=== PATIENT | female | born 1955 | race Caucasian/White ===

== ENCOUNTER 2022-03-28 13:34 | Outpatient (CLI) | payer MEDICARE, OTHER, SELFPAY ==
[2022-04-04 16:14] LABS: ANA Cascade Screen Negative (Negative)
== END 2022-03-28 13:35 | disposition home or self-care (01) ==
LOC: CHSLAB 13:37
PROVIDERS: PCP Internal Medicine; Visit Provider Nurse Practitioner Family
DX: R91.8 Other nonspecific abnormal finding of lung field (principal)
CPT/HCPCS: 36415; 86038; 86331; 86606; 86609

== ENCOUNTER 2022-05-02 12:40 | Outpatient (CLI) | payer MEDICARE, OTHER, SELFPAY ==
--- NOTE | ~2022-05-02 | CT_ITS ---
EXAMINATION: CT chest high resolution [facility] DATE: 05/02/2022 13:00 INDICATION: THIN WALLED LUNG CYST F/U. TECHNIQUE: Computed tomography (CT) of the chest was performed without intravenous contrast. Addition al 3D reconstructions utilizing coronal maximum intensity projection (MIP) were performed. Automated exposure control and iterative reconstruction technique were employed. The dose-length product was 13 5.67 mGy-cm. COMPARISON: 01/07/2018 FINDINGS: No interval change in a 1.5 cm right upper lobe nodule with smooth margins and less than fluid attenu ation consistent with a hamartoma. The nodule appears to nearly completely fill a thin-walled cystic structure with subtle eccentric lucency along the cephalad margin of the nodule evident on the sagitt al and coronal images. There is an additional unchanged 11 mm nodule within a thin-walled cyst in the anterior segment of the right upper lobe. Unchanged 3-4 mm peripheral nodule along a thin-walled cys t in the right lower lobe. Thin-walled cyst at the posterior sulcus of the left lower lobe within whi ch are three, 4-5 mm nodules which are increased in size since the prior study at which time there we re 4 such nodules measuring up to 2 mm in maximal diameters. There are a few additional unchanged thi n-walled cysts without nodules scattered throughout both lungs. 2 mm calcified nodule at the right mi ddle lobe consistent with old granulomatous disease. No other pulmonary nodules, pneumonia, pulmonary edema or pleural effusion. Heart size is normal. No pericardial effusion. Thoracic aorta is normal i n caliber. No pathologically enlarged thoracic lymphadenopathy. Visualized upper abdomen and bones ar e unremarkable. IMPRESSION: 1. Again seen are multiple thin-walled cysts, several with associated nodules, the majority including the 2 largest right upper lobe nodules measuring 1.1 cm and 1.5 cm are unchanged. There has been sli ght interval increase in size in 3 such nodules located within a single thin-walled cyst in the left lower lobe with each nodule having increased from 2 mm to currently measuring 4-5 mm. Given the simil ar imaging features these likely represent the same process. Despite the slight increase in size over 5 years of the nodules in one of the cysts, the stability of the remaining nodules including the 2 l argest suggest these are almost certainly benign with differential including mesenchymal cystic hamar linda of the lung, lymphangioleiomyomatosis minimal lymphocytic interstitial pneumonia or pulmonary La ngerhans cell histiocytosis. Reviewed, dictated and finalized at location A. IMPRESSION: 1. Again seen are multiple thin-walled cysts, several with associated nodules, the majority including the 2 largest right upper lobe nodules measuring 1.1 cm and 1.5 cm are unchanged. There has been slight interval increase in size in 3 such nodules located within a single thin-walled cyst in the left lower lobe wi th each nodule having increased from 2 mm to currently measuring 4-5 mm. Given the similar imaging features these likely represent the same process. Despite t he slight increase in size over 5 years of the nodules in one of the cysts, the stability of the remaining nodules including the 2 largest suggest these are a lmost certainly benign with differential including mesenchymal cystic hamartoma of the lung, lymphangioleiomyomatosis minimal lymphocytic interstitial pneumon ia or pulmonary Langerhans cell histiocytosis.
--- NOTE | 2022-05-07 13:29 | WPDPFTINT ---
PFT Procedure Performed PFT Procedure Performed Spirometry with Pre/Post Bronchodilator Plethysmography (Lung Vol) Diffusing Cap (DLCO) Flow Vol Loop PFT Interpretation DOS: 05/02/2022 REQUESTING: Dr. De Paz REASON FOR TESTING: Cysts on chest CT PULMONARY FUNCTION TESTS Results are reliable and reproducible. Spirometry: Pre bronchodilator FEV1 is 107% predicted, 2.63 L, normal. Pre bronchodilator FVC is 3.83 L, 124% predicted. FEV1/FVC ratio is 69%. The FEF 25-75 is 53%, 1.43 L, this is decreased. After bronchodilator administration, there is minimal change in spirometry. The FVC dropped by 3%, becomes 3.73 L, 121% predicted. There is a 1% increase in the FEV1. There is a 22% increase in the FEF 25-75%. This is now 1.74 L and is 65% predicted. Lung volumes: Total lung capacity is 110% predicted, 6.02 L. Residual volume is 102% predicted, 2.19 L normal. RV/TLC is 36% predicted normal. There is no air trapping. Airway resistance increased 458%. FRC is 116%. Diffusion: DLCO is 97% predicted, normal, 19.8 mL/min/mmHg. DLCO / VA is 105%, normal. Flow volume loop: There is mild scooping of the expiratory limb. IMPRESSION: Normal spirometry, mild decrease in the JAR08-10% which can be seen in asthma and a good response to bronchodilator in the small airways, normal lung volumes, increased airway resistance and normal diffusion. Clinical correlation is advised. Shelley De Paz MD
== END 2022-05-02 12:41 | disposition home or self-care (01) ==
LOC: CHSIMG 12:42
PROVIDERS: PCP Internal Medicine; Visit Provider Internal Medicine Critical Care Medicine
DX: J98.4 Other disorders of lung (principal)
CPT/HCPCS: 71250

== ENCOUNTER 2022-05-15 08:21 | Outpatient (CLI) | payer MEDICARE, SELFPAY ==
[2022-05-15 09:47] LABS: Rheumatoid Factor Screen Negative (Negative)
[2022-05-18 17:44] LABS: Albumin 4.1 g/dL (3.8-4.8); Alpha 1 Globulin 0.3 g/dL (0.2-0.3); Alpha 2 Globulin 0.6 g/dL (0.5-0.9); Beta 1 Globulin 0.4 g/dL (0.4-0.6); Gamma Globulin 0.7 g/dL (0.8-1.7); Interpretation Consistent with; Protein, Total 6.4 g/dL (6.1-8.1)
== END 2022-05-15 08:22 | disposition home or self-care (01) ==
LOC: CHSLAB 08:23
PROVIDERS: PCP Internal Medicine; Visit Provider Internal Medicine Critical Care Medicine
DX: J98.4 Other disorders of lung (principal); J84.112 Idiopathic pulmonary fibrosis
CPT/HCPCS: 36415; 84155; 84165; 86430

== ENCOUNTER 2022-10-30 08:12 | Outpatient (CLI) | payer MEDICARE, SELFPAY ==
[2022-10-30 08:51] LABS: Anion Gap 8 mmol/L (8-16); Blood Urea Nitrogen 18 mg/dL (7-18); Calcium 8.7 mg/dL (8.5-10.1); Carbon Dioxide 30 mmol/L (21-32); Chloride 106 mmol/L (98-108); Estimated Glomerular Filt Rate > 60; Glucose 88 mg/dL (70-99); Osmolality Calculated 298 mOsm/kg (285-295); Potassium 4.2 mmol/L (3.5-5.1); Sodium 144 mmol/L (136-145)
[2022-11-01 18:16] LABS: Kappa\\Lambda Light Chains 1.42 (0.26-1.65); Lambda Light Chain 8.8 mg/L (5.7-26.3)
[2022-11-02 04:54] LABS: Vitamin D 25 Hydroxy 48 ng/mL (30-100)
[2022-11-02 11:16] LABS: Albumin 4.3 g/dL (3.8-4.8); Alpha 1 Globulin 0.3 g/dL (0.2-0.3); Alpha 2 Globulin 0.7 g/dL (0.5-0.9); Beta 1 Globulin 0.4 g/dL (0.4-0.6); Gamma Globulin 0.8 g/dL (0.8-1.7); Protein, Total 6.8 g/dL (6.1-8.1)
== END 2022-10-30 08:13 | disposition home or self-care (01) ==
PROVIDERS: PCP Internal Medicine; Visit Provider Internal Medicine Critical Care Medicine
DX: D80.1 Nonfamilial hypogammaglobulinemia (principal); M81.0 Age-related osteoporosis without current pathological fracture
CPT/HCPCS: 36415; 80048; 82306; 83883; 84155; 84165

== ENCOUNTER 2022-12-31 07:11 | Outpatient (CLI) | payer MEDICARE, OTHER, SELFPAY ==
--- NOTE | ~2022-12-31 | XR_ITS ---
XR lumbar spine 2-3V DATE: 12/31/2022 07:33 INDICATION: Right leg pain, knee pain TECHNIQUE: AP, lateral, coned lateral lumbosacral views COMPARISON: 07/13/2019 lumbar spine FINDINGS: Osteopenia. Moderate degenerative disease at L1-2 and L2-3 with associated mild retrolisthesis at L2-3. Remaining lumbar and lumbosacral interspaces are well preserved. No anterolisthesis. No fracture or bone destruction of the lumbar spine. The included lower thoracic and lumbar pedicles are intact. The sacroiliac joints are intact. IMPRESSION: Osteopenia Moderate degenerative disc disease at L1-2 and L2-3 with associated mild retrolisthesis at L2-3 Reviewed, dictated and finalized at location A. IMPRESSION: Osteopenia Moderate degenerative disc disease at L1-2 and L2-3 with associated mild retrol isthesis at L2-3
--- NOTE | ~2022-12-31 | XR_ITS ---
XR hip RT min 2V DATE: 12/31/2022 07:33 INDICATION: Right leg pain. Low back pain. TECHNIQUE: AP and lateral views of right hip COMPARISON: 07/13/2019 right hip FINDINGS: There is severe right hip joint space narrowing, particularly superolaterally. Chronic frac ture of the lateral lip of the right acetabulum. No recent fracture or dislocation is evident. The pubic symphysis and right sacroiliac joint are intact. IMPRESSION: Severe right hip osteoarthritis Chronic fracture at the lateral aspect of the right acetabulum Reviewed, dictated and finalized at location A.
[2022-12-31 07:28] LABS: Basophils Absolute Auto 0.04 K/mm3 (0.00-0.10); Basophils Percent Auto 0.7 % (0.0-1.0); Eosinophils Percent Auto 3.5 % (1.0-6.0); Hematocrit 43.9 % (35.0-42.0); Hemoglobin 14.7 g/dL (11.7-13.8); Lymphocytes Percent Auto 47.5 % (18.0-42.0); Mean Corpuscular HGB Conc 33.5 g/dL (32.0-36.0); Mean Corpuscular Hemoglobin 30.2 pg (27.0-31.0); Mean Corpuscular Volume 90.3 fL (78.0-102.0); Monocytes Absolute Auto 0.37 K/mm3 (0.10-0.90); Monocytes Percent Auto 6.5 % (2.0-11.0); Neutrophils Absolute Auto 2.4 K/mm3 (1.7-7.2); Neutrophils Percent Auto 41.8 % (50.0-70.0); Platelet Count Result 325 K/mm3 (150-420); Red Blood Count 4.86 M/mm3 (4.20-5.40); White Blood Count 5.7 K/mm3 (4.8-10.8)
[2022-12-31 08:38] LABS: Alanine Aminotransferase 23 U/L (14-59); Albumin Level 3.8 g/dL (3.4-5.0); Alkaline Phosphatase 58 U/L (46-116); Anion Gap 6 mmol/L (8-16); Aspartate Amino Transferase 12 U/L (15-37); Blood Urea Nitrogen 18 mg/dL (7-18); Carbon Dioxide 31 mmol/L (21-32); Chloride 105 mmol/L (98-108); Estimated Glomerular Filt Rate > 60; Glucose 88 mg/dL (70-99); Osmolality Calculated 294 mOsm/kg (285-295); Potassium 4.5 mmol/L (3.5-5.1); Sodium 142 mmol/L (136-145); Thyroid Stimulating Hormone 2.57 uIU/mL (0.36-3.74); Total Protein 6.8 g/dL (6.4-8.2)
[2022-12-31 09:00] LABS: CRP < 0.5 mg/dL (0.0-0.9)
[2023-01-06 21:56] LABS: ANCA Screen ATYP P-ANCA POS (Negative); Myeloperoxidase Ab <1.0 AI (<1.0); Proteinase-3 Ab <1.0 AI (<1.0); S cerevisiae Ab (IgA) 4.8 U (<=20.0); S cerevisiae Ab (IgG) 7.7 U (<=20.0)
[2023-01-06 22:14] LABS: Atyp PANCA Ttr Reflex Chg Test YES; Atypical P-ANCA Titer 1:40 Titer (<1:20)
== END 2022-12-31 07:12 | disposition home or self-care (01) ==
LOC: CHSLAB 07:14
PROVIDERS: PCP Internal Medicine; Visit Provider Internal Medicine
DX: E03.9 Hypothyroidism, unspecified (principal); R19.7 Diarrhea, unspecified; M79.604 Pain in right leg; M16.11 Unilateral primary osteoarthritis, right hip; M84.48XA Pathological fracture, other site, initial encounter for fracture; M51.36 Other intervertebral disc degeneration, lumbar region; M43.16 Spondylolisthesis, lumbar region
CPT/HCPCS: 36415; 72100; 73502; 80053; 84443; 85025; 86036; 86140; 86671

== ENCOUNTER 2023-03-11 09:03 | Outpatient (CLI) | payer MEDICARE, OTHER, SELFPAY ==
--- NOTE | ~2023-03-11 | XR_ITS ---
Clinical Indication: Preoperative evaluation, pulmonary cysts PA and lateral views of the chest: Comparison: None Findings: There is a 2 cm nodule at the right upper lobe. There is an additional 1 cm nodule at the r ight upper lobe. Left lung clear.. Cardiomediastinal silhouette is within normal limits. Bones and s oft tissues are unremarkable. Impression: Right upper lobe pulmonary nodules, as detailed above. These probably correlate with similar lesions seen on prior CT dated 05/02/2022. Reviewed, dictated and finalized at location M. Impression: Right upper lobe pulmonary nodules, as detailed above. These probably correlate with similar lesions seen on prior CT dated 05/02/2022.
--- NOTE | 2023-03-11 09:15 | ECG_ITS ---
Measurements Intervals [place] Rate: 65 P: 69 HI: 159 QRS: 76 QRSD: 93 T: 59 QT: 399 QTc: 417 Interpretive Statements SINUS RHYTHM NORMAL ECG NO PREVIOUS ECG AVAILABLE FOR COMPARISON Electronically Signed On 03-11-2023 9:49:24 CDT by Anand Chambers D.O.
== END 2023-03-11 09:04 | disposition home or self-care (01) ==
LOC: CHSIMG 09:06
PROVIDERS: PCP Internal Medicine; Visit Provider Internal Medicine
DX: Z01.818 Encounter for other preprocedural examination (principal); R91.8 Other nonspecific abnormal finding of lung field
CPT/HCPCS: 71046; 93005

== ENCOUNTER 2023-05-01 09:28 | Outpatient (CLI) | payer MEDICARE, OTHER, SELFPAY ==
--- NOTE | ~2023-05-01 | US_ITS ---
US arterial ankle brachial ind INDICATION: Peripheral arterial disease TECHNIQUE: Segmental pressures and plethysmographic and Doppler waveforms of the brachial and lower e xtremity arteries were obtained. COMPARISON: None. FINDINGS: Right and left brachial artery pressures of 140 mm Hg and 133 mm Hg, respectively, are concordant (no rmal difference <= 30 mmHg). The right ankle-brachial index (AVERY) is 1.01 (normal >= 0.9-1.0). The right great toe-brachial index (TBI) is 0.86 (normal >= 0.60). The left AVERY is 1.0. The left TBI is 0.84. IMPRESSION: 1. Normal bilateral ankle-brachial indices. Reviewed, dictated and finalized at location B.
--- NOTE | ~2023-05-01 | US_ITS ---
EXAMINATION:US venous doppler LE RT INDICATION:Right leg edema TECHNIQUE: Multiple grayscale, color flow and Doppler images of the right lower extremity deep venous systems were obtained and reviewed. COMPARISON:No prior studies for comparison. FINDINGS: The common femoral, superficial femoral and popliteal veins demonstrate normal respiratory variation, augmentation and compressibility. Color flow is also seen within the posterior tibial, pe roneal, greater saphenous and profunda veins. IMPRESSION: 1: No lower extremity deep venous thrombosis. Reviewed, dictated and finalized at location B.
[2023-05-01 10:03] LABS: Basophils Absolute Auto 0.03 K/mm3 (0.00-0.10); Basophils Percent Auto 0.5 % (0.0-1.0); Eosinophils Absolute Auto 0.21 K/mm3 (0.02-0.50); Eosinophils Percent Auto 3.5 % (1.0-6.0); Hematocrit 39.8 % (35.0-42.0); Hemoglobin 12.9 g/dL (11.7-13.8); Immature Granulocyte Absolute 0.01 K/mm3 (0.00-0.00); Immature Granulocyte Percent A 0.2 % (0.0-0.0); Lymphocytes Absolute Auto 2.05 K/mm3 (1.10-4.50); Lymphocytes Percent Auto 34.2 % (18.0-42.0); Mean Corpuscular HGB Conc 32.4 g/dL (32.0-36.0); Mean Corpuscular Hemoglobin 30.1 pg (27.0-31.0); Mean Corpuscular Volume 92.8 fL (78.0-102.0); Mean Platelet Volume 9.1 fl (9.2-11.8); Monocytes Absolute Auto 0.49 K/mm3 (0.10-0.90); Monocytes Percent Auto 8.2 % (2.0-11.0); Neutrophils Absolute Auto 3.2 K/mm3 (1.7-7.2); Neutrophils Percent Auto 53.4 % (50.0-70.0); Platelet Count Result 355 K/mm3 (150-420); Red Blood Count 4.29 M/mm3 (4.20-5.40); Red Cell Distribution Width 13.4 % (11.6-14.4)
[2023-05-01 10:55] LABS: D Dimer 1.17 mg/L (0.19-0.50)
[2023-05-01 11:25] LABS: Alanine Aminotransferase 17 U/L (14-59); Albumin Level 3.5 g/dL (3.4-5.0); Alkaline Phosphatase 84 U/L (46-116); Anion Gap 6 mmol/L (8-16); Aspartate Amino Transferase 13 U/L (15-37); Bilirubin,Total 0.7 mg/dL (0.00-1.00); Blood Urea Nitrogen 22 mg/dL (7-18); Calcium 8.8 mg/dL (8.5-10.1); Carbon Dioxide 30 mmol/L (21-32); Chloride 106 mmol/L (98-108); Estimated Glomerular Filt Rate > 60; Glucose 80 mg/dL (70-99); Osmolality Calculated 296 mOsm/kg (285-295); Potassium 4.6 mmol/L (3.5-5.1); Sodium 142 mmol/L (136-145); Total Protein 6.4 g/dL (6.4-8.2)
== END 2023-05-01 09:29 | disposition home or self-care (01) ==
PROVIDERS: PCP Internal Medicine; Visit Provider Internal Medicine
DX: M79.89 Other specified soft tissue disorders (principal); R23.2 Flushing
CPT/HCPCS: 36415; 80053; 85025; 85380; 93922; 93971

== ENCOUNTER 2023-05-08 08:15 | Outpatient (RCR) | payer MEDICARE, OTHER, SELFPAY ==
--- NOTE | 2023-05-08 15:43 | OPREHPOC ---
Outpatient Therapy Plan of Care This is a Multidisciplinary Plan of Care that may contain components documented by all disciplines (PT, OT, and ST.) PT Problem 1 PT Problem #1 Knowledge Deficit PT Goal 1 Goal 1. Patient to demonstrate independence with HEP in order to improve progress made in PT. Target Visit 6 PT Problem 2 PT Problem #2 Impaired Range of Motion PT Goal 1 Goal 1. Patient to achieve 105 degrees of active R hip flexion to improve her ability to squat to floor to place food in her dog's bowl. Target Visit 12 PT Problem 3 PT Problem #3 Impaired Strength PT Goal 1 Goal 1. Patient to increase strength in R hip to 4/5 or greater overall to improve ability to ascend stairs. 2. Patient to increase strength in R knee to 5/5 overall to improve ability to perform squat. Target Visit 12 PT Problem 4 PT Problem #4 Impaired Gait PT Goal 1 Goal 1. Patient to demonstrate equal step length with gait to normalize gait pattern. 2. Patient to ambulate 800 feet or more during 6 minute walk test to improve endurance for walking in community. 3. patient to ambulate with no AD Target Visit 12 PT Problem 5 PT Problem #5 Impaired Functional Mobil PT Goal 1 Goal 1. Patient to improve LEFS score to 30% or less functional decline to help in return to prior level of activity. 2. Patient to ascend/descend stairs using reciprocal gait pattern to allow for her to reach laundry in basement. Target Visit 12
--- NOTE | 2023-05-08 15:44 | PTOPEVAL1 ---
Assessment and note entered by JT File, PT Evaluation Information Assessment Status Evaluation Diagnosis R ALESSANDRA Onset 05/05/23 Subjective Information Patient reports having a right anterior hip replacement about 6 weeks ago. She reports she has a history of osteoporosis, due to this she was 50 % weight bearing on the surgical limb until this past Thursday. She notes that she had a siginifcant amount of swelling following the surgery, but has since reduced. She notes that since she has been full weight bearing that she was been functioning much better, however has yet been able to climb a flight of stairs. She reports no pain at rest in sitting, she notes occasional hip discomfort and tenderness along the incision. She brings with her a FWW and SPC this date, noting that the doctor suggested she work on transferring to using a SPC with PT. She notes that prior to surgery she had not used any assistive device to ambulate. She wants to be mobile by the time she visits [place] in July Reported Pain Level Pain Score 0: Self Report Assessment PT Clinical Summary Mrs. Sams is a 67 y/o female who presents to skilled PT s/p R ALESSANDRA. She presents with impairments in R hip ROM, as well as R hip and knee muscle strength. Patient ambulates with unequal step lengths and FWW currently. Patient currently has 60% functional decline as assessed by the LEFS, and reports difficulty participating in her normal activities and being able to navigate a flight of stairs to reach her laundry in the basement. She would benefit from continued skilled therapy to address strength, ROM, and gait deficits and aid in her return to prior level of function. Plan of Care Interventions Electrical Stimulation,Gait Training,Hot Pack/Cold Pack,Manual Therapy,Neuro Re-education,Patient/ Caregiver Educati,Therapeutic Activities, Therapeutic Exercise PT Services Indicated Yes Treatment Frequency and 3x/week for 12 visits Duration These treatments will address the objective and functional deficits as defined above. The patient will be advanced safely and appropriately in order for the patient to progress towards his/her prior level of function. Additional exercises will be introduced and as well as a comprehensive home exercise program upon discharge, if needed, ?to ensure carryover of functional gains achieved in the clinic. This treatmen
--- NOTE | 2023-05-27 14:11 | OPREHPOC ---
Outpatient Therapy Plan of Care This is a Multidisciplinary Plan of Care that may contain components documented by all disciplines (PT, OT, and ST.) PT Problem 1 PT Problem #1 Knowledge Deficit PT Goal 1 Goal 1. Patient to demonstrate independence with HEP in order to improve progress made in PT. Target Visit 6 Progress Met Comment continue to progress exercises PT Problem 2 PT Problem #2 Impaired Range of Motion PT Goal 1 Goal 1. Patient to achieve 105 degrees of active R hip flexion to improve her ability to squat to floor to place food in her dog's bowl. Target Visit 12 Progress Partially Met Comment improved ROM, however goal not met PT Problem 3 PT Problem #3 Impaired Strength PT Goal 1 Goal 1. Patient to increase strength in R hip to 4/5 or greater overall to improve ability to ascend stairs. 2. Patient to increase strength in R knee to 5/5 overall to improve ability to perform squat. Target Visit 12 Progress Partially Met Comment goal 2 met, goal 1 partially met PT Problem 4 PT Problem #4 Impaired Gait PT Goal 1 Goal 1. Patient to demonstrate equal step length with gait to normalize gait pattern. 2. Patient to ambulate 800 feet or more during 6 minute walk test to improve endurance for walking in community. 3. patient to ambulate with no AD Target Visit 12 Progress Met Comment goals met PT Problem 5 PT Problem #5 Impaired Functional Mobil PT Goal 1 Goal 1. Patient to improve LEFS score to 30% or less functional decline to help in return to prior level of activity. 2. Patient to ascend/descend stairs using reciprocal gait pattern to allow for her to reach laundry in basement. Target Visit 12 Progress Partially Met Comment goal 2 met
--- NOTE | 2023-05-27 14:12 | PTOPPROGNS ---
Assessment and note entered by JT File, PT Evaluation Information Assessment Status Re-evaluation Diagnosis R ALESSANDRA Onset 05/05/23 Subjective Information Patient reports some soreness present in the R hip at the start of today's PT session. She notes she has been walking with no AD for a few weeks now without any difficulty. Patient reports everything has gotten easier to do throughout the day since starting PT. She notes some difficulty remains when she bends over to pick objects up from floor. She states she started driving again yesterday with no difficulty. Assessment PT Clinical Summary Ms. Sams has attended 10 visits of skilled PT following R ALESSANDRA, making good progress towards goals. She demonstrates improved hip ROM, strength , and LE flexibility this date. Patient improved distance ambulated with 6 minute walk test, as well as improved Tinetti balance score, reducing her fall risk. Patient reports improved ability to walk, climb stairs, and move throughout the day, however still has some challenge with bending over to pick items up from floor. Patient to continue PT for remaining two visits in POC to further strengthening, balance, and ROM activities. Plan of Care Interventions Electrical Stimulation,Gait Training,Hot Pack/Cold Pack,Manual Therapy,Neuro Re-education,Patient/ Caregiver Educati,Therapeutic Activities, Therapeutic Exercise PT Services Indicated Yes Treatment Frequency and continue POC for remaining 2 visits per initial Duration evaluation These treatments will address the objective and functional deficits as defined above. The patient will be advanced safely and appropriately in order for the patient to progress towards his/her prior level of function. Additional exercises will be introduced and as well as a comprehensive home exercise program upon discharge, if needed, ?to ensure carryover of functional gains achieved in the clinic. This treatment plan has been reviewed and agreement upon by the patient.
--- NOTE | 2023-06-03 09:08 | PTOPDC ---
Assessment and note entered by JT File, PT Evaluation Information Assessment Status Discharge Diagnosis R ALESSANDRA Onset 05/05/23 Subjective Information patient reports she feels great today. she reports she has no pain in the R hip. she reports she is no using any AD. she reports she is walking up and down steps at home to perform laudry duties. Reported Pain Level Pain Score 0: Self Report Pain Score 0: Self Report Assessment PT Clinical Summary mrs. thompson presents to skilled PT for her 12th skilled PT visit today. she has met all goals for skilled PT as of this date. she will DC skilled PT and continue with HEP independent at home. Plan of Care PT Services Indicated Yes
== END 2023-06-03 15:29 | disposition home or self-care (01) ==
LOC: CHSPT 08:15
DX: Z47.1 Aftercare following joint replacement surgery (principal); Z96.641 Presence of right artificial hip joint
CPT/HCPCS: 97110; 97112; 97140; 97161; 97530

== ENCOUNTER 2023-10-30 07:21 | Outpatient (CLI) | payer MEDICARE, OTHER, SELFPAY ==
[2023-10-30 08:15] LABS: Calcium 8.6 mg/dL (8.5-10.1)
[2023-11-02 21:29] LABS: Vitamin D 25 Hydroxy 51 ng/mL (30-100)
== END 2023-10-30 07:22 | disposition home or self-care (01) ==
LOC: CHSLAB 07:25
PROVIDERS: PCP Internal Medicine
DX: M81.0 Age-related osteoporosis without current pathological fracture (principal)
CPT/HCPCS: 36415; 82306; 82310

== ENCOUNTER 2023-12-15 11:16 | Outpatient (CLI) | payer MEDICARE, OTHER, SELFPAY ==
--- NOTE | ~2023-12-15 | XR_ITS ---
Clinical Indication: Nodule PA and lateral views of the chest: Comparison: Report from prior exam dated 03/11/2023 Findings: 2 cm irregular pulmonary nodule and additional 1 cm right upper lobe pulmonary nodule prese nt, presumably unchanged based on report from prior exam.. Cardiomediastinal silhouette is within no rmal limits. Bones and soft tissues are unremarkable. Impression: Right upper lobe pulmonary nodules, as detailed above, likely unchanged based on report from prior ex am. Images cannot be retrieved for direct comparison due to computer/technical issues at this time. Reviewed, dictated and finalized at location M. Impression: Right upper lobe pulmonary nodules, as detailed above, likely unchanged based o n report from prior exam. Images cannot be retrieved for direct comparison due to computer/technical issues at this time.
== END 2023-12-15 11:17 | disposition home or self-care (01) ==
PROVIDERS: PCP Internal Medicine; Visit Provider Internal Medicine Critical Care Medicine
DX: J98.4 Other disorders of lung (principal); R91.8 Other nonspecific abnormal finding of lung field
CPT/HCPCS: 71046

== ENCOUNTER 2024-05-16 11:21 | Outpatient (CLI) | payer MEDICARE, SELFPAY ==
[2024-05-16 16:03] LABS: Anion Gap 8 mmol/L (4-12); Blood Urea Nitrogen 16 mg/dL (7-18); Calcium 8.8 mg/dL (8.5-10.1); Carbon Dioxide 31 mmol/L (21-32); Chloride 104 mmol/L (98-108); Estimated Glomerular Filt Rate > 60; Glucose 94 mg/dL (70-99); Osmolality Calculated 297 mOsm/kg (285-295); Potassium 4.2 mmol/L (3.5-5.1); Sodium 143 mmol/L (136-145)
[2024-05-17 12:08] LABS: Vitamin D 25 Hydroxy 46 ng/mL (30-100)
== END 2024-05-16 11:22 | disposition home or self-care (01) ==
PROVIDERS: PCP Internal Medicine
DX: M81.0 Age-related osteoporosis without current pathological fracture (principal)
CPT/HCPCS: 36415; 80048; 82306

== ENCOUNTER 2024-12-30 12:45 | Outpatient (CLI) | payer MEDICARE, OTHER, SELFPAY ==
--- NOTE | ~2024-12-30 | CT_ITS ---
CT diagnostic chest wo con Ordering provider: Shelley De Paz MD History: 69 years Female with . cystic lung disease, comparison . Comparison: May 02 2022 Technique: CT chest without IV contrast.Radiation reduction technique utilized.The dose-length produc t was 153 mGy-cm. FINDINGS: VISUALIZED THORACIC INLET: Normal. MEDIASTINUM: Aorta/coronary arteries: Mild atheromatous disease. Ascending aorta measures 3.3 cm. Heart/other: The heart is not enlarged. Trace of pericardial effusion. Lymph nodes: No mediastinal or hilar adenopathy. LUNGS: Small cystic areas with intracystic nodules seen in the right upper lobe posteriorly. Another lesion is also seen in the medial lobe other multiple lesions are seen in the right and left lower lo bes and left upper lobe. No pulmonary masses. No infiltrates or effusions. No pneumothorax. VISUALIZED UPPER ABDOMEN: Slightly hyperdense lesion in the right lobe of the liver measuring 2.8cm. Otherwise, the visualized upper abdomen evaluation advised. Abdomen is normal. MUSCULOSKELETAL: Soft tissues: The superficial soft tissues are normal. Bones: Age appropriate degenerative changes of the spine. IMPRESSION: 1. Multiple cystic areas with nodules which has slightly increased in number compared to the previou s study. Differential as previously mentioned including KINNEY and LCH. 2. Slightly hyperdense area in the liver segment 6. Further evaluation advised. Reviewed, dictated and finalized at location A. IMPRESSION: 1. Multiple cystic areas with nodules which has slightly increased in number c ompared to the previous study. Differential as previously mentioned including L AM and LCH. 2. Slightly hyperdense area in the liver segment 6. Further evaluation advised .
--- OUTSIDE RECORDS SUMMARY | 2024-12-30 12:50 | XMS_ITS | Clinical Summary ---
Author Organization [facility] Address [address] [address] Care Team Providers Care Assistant Front End Manager Name Role Phone Harsha Delarosa MD Primary Care Provider [phone] Source Comments [facility],non-[facility] and Associated Physician Practices is amultiple site organization consisting of ambulatory clinics and hospital sitesin [place], [place], [place] and [place]. This disclosure is being madepursuant to the Care Everywhere program and may not contain all information available regarding this patient. Last updated 18.[facility] Allergies No known active allergies Social History Tobacco Use Types Packs/Day Years Used Date Smoking Tobacco: Never Assessed Comments Unknown Sex and Gender Information Value Date Recorded Sex Assigned at Not on file Legal Sex Female 5:22 PM CDT Gender Identity Not on file Sexual Orientation Not on file Last Filed Vital Signs Vital Sign Reading Time Taken Comments Blood Pressure 124/68 12/28/2016 2:38 PM CDT Pulse 68 12/28/2016 2:38 PM CDT Temperature 36.6 C (97.8 F) 12/28/2016 2:38 PM CDT Respiratory Rate - - Oxygen Saturation 98% 12/28/2016 2:38 PM CDT Inhaled Oxygen Concentration - - Weight 70.3 kg (155 lb) 12/28/2016 2:38 PM CDT Height 167.6 cm (5' 6 ) 12/28/2016 2:38 PM CDT Body Mass Index 25.02 12/28/2016 2:38 PM CDT Plan of Treatment Health Maintenance Due Date Last Done Comments BONE DENSITY TESTING 1955 COLOGUARD (AGES 45-75) - COL ON CA SCREENING 1956 COLON MONITORING 1956 COLONOSCOPY - COLON CA SCREENING 1956 CT COLONOGRAPHY - COLON CA SCREENING 1956 Colorectal Cancer Screening 1956 FIT - COLON CA SCREENING 1956 FLEX SIG - COLON CA SCREENING 1956 LIPID TESTING 1956 MAMMOGRAM 1956 HEPATITIS C SCREENING 10/30/1974 DTAP/TDAP/TD VACCINES (1 - Tdap) 1975 PNEUMOCOCCAL VACCINE 50+ (1 of 1 - PCV) 2006 ZOSTER VACCINE (1 of 2) 2006 COVID-19 VACCINE (1 - 2023-2 5 season) 2024 DEPRESSION SCREENING 09/07/2024 INFLUENZA VACCINE (Season Ended) 2025 Respiratory Syncytial Virus (RSV) Vaccine Pt: or over 60 yrs (1 - 1-dose 75+ series) 2031 HEPATITIS B VACCINE Aged Out No longe r eligible based on patient's age to complete this topic HIB VACCINE Aged Out No longer eligi ble based on patient's age to complete this topic HPV VACCINE Aged Out No longer eligi ble based on patient's age to complete this topic MENINGOCOCCAL (Group B) VACC INE SHARED DECISION-MAKING Aged Out No longer eligibl e based on patient's age to complete this topic MENINGOCOCCAL GROUPS A/C/Y/W VACCINE Aged Out No longer eligible b ased on patient's age to complete this topic Insurance ANTHEM Care Teams Assistant Front End Manager Relationship Specialty Start Date End Date Harsha Delarosa MD [address] [place] [id number] PCP - General Family Medicine 12/28/16
--- OUTSIDE RECORDS SUMMARY | 2024-12-30 12:50 | XMS_ITS | Clinical Summary ---
Author Organization [facility] Address [address] [place] [address] Care Team Providers Care Frozen Food Department Manager Name Role Phone Guerrero Whatley MD Primary Care Provider Allergies No known active allergies Medications calcium carb-cholecalci ferol (CALTRATE+D) 600-10 MG-MCG Tab tablet 1 tablet daily. Active multi vitamin/mineral s (THERA-M ENHANCED) tablet Take 1 tablet by mouth daily. Active levothyroxine (SYNTHROID) 50 MCG tablet Take 1 tablet (50 mcg total) by mouth every morning. Active B complex-C Cap capsule Take 1 capsule by mouth daily. Active vitamin D3, cholecalciferol , 10 mcg tablet Take 1 tablet (10 mcg total) by mouth daily. Active HYDROcodone-mehnaz taminophen (NORCO) 5-325 MG tabletIndicatio ns:Chronic Pain Take 1-2 tablets by mouth every 4 (four) hours as needed for Pain. Indications: Chronic Pain 50 tablet 03/24/2023 Active traMADol (ULTRAM) 50 MG tabletIndicatio ns:Chronic Pain Take 1 tablet (50 mg total) by mouth every 8 (eight) hours as needed for Pain. Indications: Chronic Pain 30 tablet 03/24/2023 Active ondansetron (ZOFRAN) 4 MG tabletIndicatio ns:Status post total hip replacement, right Take 1 tablet (4 mg total) by mouth every 8 (eight) hours as needed for Nausea. 10 tablet 03/24/2023 Active Active Problems Problem Noted Date Diagnosed Date Status post total hip replacement, right 023 Family History Medical History Relation Comments Heart Disease Father Stroke Father Heart Disease Mother Stroke Mother Relation Status Comments Father Alive Mother Social History Tobacco Use Types Packs/Day Years Used Date Smoking Tobacco: Never Smokeless Tobacco: Never Tobacco Cessation:Counseling Given: Not Answered Alcohol Use Standard Drinks/Week Comments Not Currently 0 (1 standard drink = 0.6 oz pur e alcohol) Humiliation, Afraid, Rape, and Kick questionnair e Answer Date Recorded Within the last year, have y ou been afraid of your partner or ex-partner? No 03/24/2023 Within the last year, have y ou been humiliated or emotionally abused in other ways by your partner or ex-partner? No Within the last year, have y ou been kicked, hit, slapped, or otherwise physically hurt by your partner or ex-partner? No 03/24/2023 Within the last year, have y ou been raped or forced to have any kind of sexual activity by your partner or ex-partner? No 03/24/2023 Overall Financial Resource Strain (CARDIA) Answe r Date Recorded How hard is it for you to pa y for the very basics like food, housing, medical care, and heating? Not hard at all 03/24/2023 Hunger Vital Sign Answer Date Recorded Within the past 12 months, y ou worried that your food would run out before you got the money to buy more. Never true 03/24/20 23 Within the past 12 months, t he food you bought just didn't last and you didn't have money to get more. Never true 03/24/2023 PRAPARE - Transportation Answer Date Re corded In the past 12 months, has l ack of transportation kept you from medical appointments or from getting medications? No 03/07 In the past 12 months, has l ack of transportation kept you from meetings, work, or from getting things needed for daily living? No 03/24/2023 Housing Stability Vital Sign Answer Marshall e Recorded In the last 12 months, was t here a time when you were not able to pay the mortgage or rent on time? No 03/24/2023 In the last 12 months, how many places have you lived? 1 03/24/2023 In the last 12 months, was t here a time when you did not have a steady place to sleep or slept in a correction (including now)? No 03/24/2023 Comments Unknown Sex and Gender Information Value Date Recorded Sex Assigned at Not on file Legal Sex Female 10:15 PM [employer] Gender Identity Not on file Sexual Orientation Not on file Last Filed Vital Signs Vital Sign Reading Time Taken Comments Blood Pressure 96/53 03/25/2023 7:59 AM CDT Pulse 74 03/25/2023 7:59 AM CDT Temperature 36.7 C (98.1 F) 03/25/2023 7:59 AM CDT Respiratory Rate 16 03/25/2023 3:40 AM CDT Oxygen Saturation 95% 03/25/2023 7:59 AM CDT Inhaled Oxygen Concentration - - Weight 67.6 kg (149 lb) 03/24/2023 9:27 AM CDT Height 167.6 cm (5' 6 ) 03/24/2023 9:27 AM CDT Body Mass Index 24.05 03/24/2023 9:27 AM CDT Plan of Treatment Health Maintenance Due Date Last Done Comments Colorectal Cancer Screening Colonoscopy (10 Years) 1956 Hepatitis C 1974 DTaP, Tdap and Td Vaccines (1 - Tdap) 1975 Mammogram Screening 1996 Pneumococcal Vaccine: 50+ Years (1 of 1 - PCV) 2006 Annual Medicare Wellness Visit 2021 Dexa Scan (General) 2021 COVID-19 Vaccine ( - season) 2024 06/01/2022, 07/15/2021, 10/29/2020, Additional history exists RSV Immunization or 60+ Years (1 - 1-dose 75+ series) 2031 Zoster Vaccines Completed 07/02/2019, 05/01/2019 Meningococcal B Vaccine Aged Out No l onger eligible based on patient's age to complete this topic Meningococcal Vaccine Aged Out No robinson chintan eligible based on patient's age to complete this topic RSV Immunizations Under 20 Months Aged Out No longer eligible based on patient's age to complete this topic Medical Devices Implanted Type Area Finance Professional Device Identifier Shelf Expiration Date Model / Serial / Lot Screw Imani Bone 20mm - [id number] Implanted:Qty: 1 on 03/24/2023 by Dougie Rowan MD at [facility] Screw Right: Hip [employer] [id number] 03/25/2032 [id number] / / [id number] Screw Imani Bone 20mm - [id number] Implanted:Qty: 1 on 03/24/2023 by Dougie Rowan MD at [facility] Screw Right: Hip [employer] [id number] 09/05/2032 [id number] / / [id number] Acetabular Shell Implanted:Qty: 1 on 03/24/2023 by Dougie Rowan MD at [facility] Right: Hip [employer] [id number] 01/06/2033 [id number] / / [id number] Poly Liner Implanted:Qty: 1 on 03/24/2023 by Dougie Rowan MD at [facility] Right: Hip [employer] [id number] 09/29/2027 [id number] / / [id number] Femoral Stem Implanted:Qty: 1 on 03/24/2023 by Dougie Rowan MD at [facility] Right: Hip [employer] [id number] 12/24/2027 [id number] / / [id number] Head Implanted:Qty: 1 on 03/24/2023 by Dougie Rowan MD at [facility] Right: Hip [employer] [id number] 11/13/2032 [id number] / / [id number] Explanted Type Area Finance Professional Device Identifier Shelf Expiration Date Model / Serial / Lot Drill Bit Imani 30mm - [id number] Explanted:Qty: 1 on 03/24/2023 by Dougie Rowan MD at [facility] Drill Right: Hip [employer] [id number] / / Insurance MEDICARE [employer] Advance Directives * Full Code (Latest Code Status on File) Date Activated Date Inactivated Comments 03/24/2023 5:17 PM 03/25/2023 3:33 PM Care Teams Frozen Food Department Manager Relationship Specialty Start Date End Date Guerrero Whatley MD [address] [place] [address] PCP - General INTERNAL MEDICINE 03/12/18
--- OUTSIDE RECORDS SUMMARY | 2024-12-30 12:50 | XMS_ITS | Continuity of Care Document ---
Author Organization [facility] Address [address] [place] [address] [place] [id number] Phone Care Team Providers Care Grab Jack Man Name Role Phone Mati Lubin MD Unavailable Unavailable Allergies, Adverse Reactions, Alerts Substance Reaction Status Criticality No Known Allergies Active No Inform ation Medications Medication Instructions Dosage Effective Dates (start - stop) Status Comments Vigamox 0.5 % eye drops instill 1 drop by ophthalmic route 4 times every day into operative eye for 2 weeks, then stop - Active ok to substitute Polytrim 5ml with same directions prednisolone acetate 1 % eye drops,suspension instill 1 drop by ophthalmic route 4 times every day into operative eye for 2 weeks, then 2 times per day for 2 weeks, then stop - Active ketorolac 0.5 % eye drops instill 1 drop in operative eye 4 times every day for 2 weeks, then 2 times per day for 2 weeks, then stop - Active Vigamox 0.5 % eye drops instill 1 drop by ophthalmic route 4 times every day into operative eye for 2 weeks, then stop - Active ok to substitute Polytrim 5ml with same directions prednisolone acetate 1 % eye drops,suspension instill 1 drop by ophthalmic route 4 times every day into operative eye for 2 weeks, then 2 times per day for 2 weeks, then stop - Active ketorolac 0.5 % eye drops instill 1 drop in operative eye 4 times every day for 2 weeks, then 2 times per day for 2 weeks, then stop - Active Simbrinza 1 %-0.2 % eye drops,suspension instill 1 drop by ophthalmic route 3 times every day into affected eye(s) 1 drop - Active Prolia 60 mg/mL subcutaneous syringe inject 1 milliliter by subcutaneous route every 6 months in the upper arm, upper thigh or abdomen 60 MG - Active Synthroid 50 mcg tablet take 1 tablet by oral route every day 50 MCG - Active Calcium 800 ORAL TABLET - Active flaxseed oil 1,000 mg capsule take 1 by oral route every day 1 - Active Yuvafem 10 mcg vaginal tablet insert 1 tablet by vaginal route every day for 14 days then 1 tablet (10 mcg) 2 times per week for duration of use 10 MCG - Active Multi Vitamin BUCCAL CAPSULE - Active Procedures Procedure Date Remove Cataract, Insert Lens IOLMaster-Professional No Charge Optomap Fundus Photos Post-op Follow-up Visit Remove Cataract, Insert Lens IOLMaster-Professional No Charge Refraction No Charge Orbscan IOLMaster-Technical No Charge GDX Retina Fundus Photography W/ Report Office/outpatient Visit, [facility] Advance Directives Directive Yes / No Effective Date File Name No Information Encounters Encounter Description Practice Location Reason(s) For Visit Diagnoses Date Provider Providers Copied on Encounter [facility], [address], [place], [place], [id number], [place] tel:[phone] [facility] No Information 1 Tristian Thorne. [address] [facility], [place], [place], [id number], [place]. tel:[phone] Referring Provider: Roberta Lanza, [facility] [address], [address]. tel:[phone] [facility], [address], [place], [place], [id number], [place] tel:[phone] [facility] [place] [facility] No Information 1 Tristian Thorne. [address], [place], [address], [place]. tel:[phone] Referring Provider: Roberta Lanza, [address], [address]. [phone] [facility], [address], [place], [place], [id number], [place] tel:[phone] SEC [facility] Professional No Information 1 Tristian Thorne. [address], [address] [place], [id number], [place]. tel:[phone] [facility], [address], [place], [place], [address], [place] tel:[phone] SEC Myra Mojica post op (chief complaint) Post op visit 1 Tristian Thorne. [address], [place], [id number], [place]. tel:[phone] Referring Provider: Roberta Lanza, [facility] [address], [address]. [phone] [facility], [address], [place], [place], [id number], [place] tel:[phone] [facility] No Information 1 Tristian Thorne. [address] [place], [address], [place]. tel:[phone] Referring Provider: Roberta Lanza, [facility] [address], [address]. tel:[phone] [facility], [address], [place], [place], [id number], [place] tel:[phone] SEC [facility] Professional No Information 1 Tristian Thorne. [address], [address] [place], [id number], [place]. tel:[phone] Referring Provider: Roberta Lanza, [facility] [address], [address]. tel:[phone] [facility], [address] [place] [address] [address], [place], [place], [id number], [phone] [facility] [place] [facility] No Information 1 Tristian Thorne. [address], [address] [place], [address], [place]. tel:[phone] Office/outpa tient Visit, [facility], [address] [place] [address] [address], [place], [place], [address], tel:[phone] [employer] [facility] Professional Cataract evaluation (chief complaint) Combined forms of age-related cataract, right eyeAge-relat ed nuclear cataract, left eyeVitreous degeneration , right eye Dec- 1 Tristian Thorne. [address], [facility] [place], [address], [place]. tel:[phone] Referring Provider: Roberta Lanza, [facility] [address], [address]. tel:[phone] [facility], [address] [place] [address] [address], [place], [place], [address], [place] tel:[phone] [facility] [place] [facility] No Information 1 Tristian Thorne. [address], [address] [place], [address], [place]. tel:[phone] Family History Family Member Type Diagnosis Age At Onset Problem Family history of degenerati ve disorder of macula Problem Family history of glaucoma Payers Payer name Insurance type Covered libertarian ID Jae danielle(s) [facility] Of [id number] Social History Type Description Quantity Date Captured Comments Sex Female Smoking Status No Information Chief Complaint And Reason For Visit No Information Reason For Referral Reason For Referral No Information Plan Of Treatment Date Type Action Status Patient Education Cataract Surgery: What to Expect at H~ completed History Of Present Illness Encounter Date Complaint History Of Prese nt Illness post op The 65 year old female presents for evaluation of IOP Check. s/p 1 week post op PCIOL OD. Dr Simpson sent over PT to check on her elevated pressure taken today, IOP was 22 OD and 17 OS. Pt taking Vigamox QID OD, Ketorolac QID OD and Prednisolone QID OD. Pt states that she is dizzy and has a headache x 1 week. Says the doctor checked her pressure and it was 23 the day after surgery and then checked it yesterday and pressure was @ 30. Dr Simpson gave her Simbrinza to take TID OD.Pt states that she was experiencing some double vision that went away when the left eye was covered. The double vision is horizontal, new, recurring and gets worse when focusing on objects closer to her. Pt says that her double vision has gone away. Cataract evaluation The 65 year old female presents for a cataract evaluation ou per Dr. Roberta Ruano. Patient c/o hard to read small print and hard to see her computer x 3 months. Patient is having a hard time seeing road signs. Functional Status Date Functional Assessmen t No Information Instructions Date Instruction Additional Kulwantr kaela Impression/Plan Impression/Plan Assessments Type Assessment Date No Information Patient Care Teams Name Effective Dates (start - stop) Status Members No Information
--- OUTSIDE RECORDS SUMMARY | 2024-12-30 12:50 | XMS_ITS | Data Portability ---
Author Organization [facility], [address] [place] [address] Neurology ([place]) Address [address] [place] [address] Care Team Providers Care Rotary Drill Operator Name Role Phone CRISTINE PHOENIX Primary Care Provider CRISTINE PHOENIX Referring Provider [phone] JUAN DELVALLE Print Buyer Assessment Encounter Date Assessment Date Assessment LastModified by Organization Details LastModified Time 03/24/2024 03/24/2024 CHIEF COMPLAINT: One year follow up status post right hip replacement on March 24, 2023. INTERVAL HISTORY: The patient presents today for follow up of her right hip replacement that was performed exactly a year ago. She is doing excellent. She rates her pain as a 0. She feels 100% recovered from surgery. She ambulates with no assistive device. She denies any recent or remote local or systemic signs or symptoms of infection with her hip and has no acute complaints or concerns at all today. REVIEW OF SYSTEMS: CONST: No fevers or chills. No acute distress. EYES: No vision changes. ENT: No difficulty in swallowing. RESP: No shortness of breath. CV: No heart racing. GI: No nausea, vomiting, diarrhea, dark tarry stools, or blood from rectum. : No urinary symptoms. MSK: Please refer to the HPI. SKIN: No rashes or other skin lesions. PSYCH: No new changes in mood or affect. NEURO: No new weakness or changes in sensory function. Reviewed past medical history, surgical history, family history, social history. No changes except as noted. PHYSICAL EXAMINATION: CONST: Alert and oriented. HEAD: Normocephalic, atraumatic. EYES: No icterus. ENT: Oral mucosa pink and moist. RESP: Breathing appears normal. No use of accessory muscles. SKIN: No jaundice. PSYCH: Appropriate mood and affect. NEURO: No speech difficulty. MSK: The patient was observed ambulating today using no assistive device with a normal gait pattern. Focused examination of the right hip is notable for a well-healed incision over the anterior aspect of the hip with no local signs of infection. Thigh and calf are soft. No pain with passive motion or axial loading of the hip. She is warm and well-perfused, and neurovascularly intact distally. Reviewed pertinent diagnostic tests, lab work, and imaging. These were reviewed with the patient. IMAGING: Plain films of the pelvis and right hip were obtained and reviewed independently today demonstrating a cementless right total hip arthroplasty in good orientation and alignment with no obvious complicating features. Please refer to the formal radiology report for more detail. PLAN: We reviewed the above clinical and imaging findings today and discussed continued management status post right hip replacement that was performed a year ago. The patient has made an excellent recovery from surgery. She has a well-functioning hip replacement without clinical or radiographic signs of complication. She can continue with activity as tolerated on the hip. I do recommend antibiotic prophylaxis for dental work and invasive procedures going forward. I should see her every two to three years for continued surveillance, but she knows how to reach me if she needs me in the interim. [email or web address] Not available 03/24/2024 13:43:37 04/21/2024 04/21/2024 68-year-old fema le with history of osteoporosis. She has been treated with Prolia since August 2018 and tolerated treatment well. We discussed transitioning off of Prolia using Reclast. We again reviewed the risks and benefits of Reclast and the patient is agreeable to proceed. Will plan on a single dose of Reclast and pending bone density results we could do a second dose of Reclast a year later. We will schedule the Reclast infusion between the dates of 05/22/2024 and 06/21/2024. Patient was given lab orders to complete a serum calcium and vitamin D approximately 2 weeks before the infusion. Next bone density scan will be due in September 2024. She has no plans for any dental surgeries. She will continue current supplements. Return to clinic in 1 year. [email or web address] Not available 04/21/2024 13:27:16 07/12/2024 07/12/2024 The partners and prevention form was reviewed. She will come back in 1 year. [email or web address] Not available 07/12/2024 15:10:15 Plan of Treatment Reminders Order Date Submit Date Provider Last Modified By Organization Details Last Modified Time Details Appointments Estab keyon Paulino nt 15.ES T 2024 10:00A M Frederick [place] Not available Not available Not available Imagi ng 5.PRO 2024 10:15A M Radiology Not available Not available Not available Efrem lai [facility] Visit 30.ES T 2024 10:30A M Dr. Juan Delvalle Not available Not available Not available Lab BMP, serum or plasm a 2023 024 [facility], [address] [place] [address], [address], 05/18/2024 11:17:39 vitam in D, 25-hy droxy , total , serum 2023 024 [email or web address] [facility], [address] [place] [address], [place], [address], 06/17/2024 09:52:19 Referral infus ion thera py cente r refer ral 2023 024 [email or web address] Not available 04/28/2024 10:32:26 Procedures None recor ded. Surgeries None recor ded. Imaging MAMMO , scree traci, digit al, bilat eral 2023 025 [email or web address] [facility], [address] , [place], [address], 07/12/2024 14:48:18 bone densi ty - Pleas e sched [place]le at [place] 900 2023 025 ANKIT [facility], [address], [place], [address], 11/16/2024 12:27:12 Medication Orders Yuvaf em 10 mcg vagin al table t 2023 024 [email or web address] [id number], [address] [place], [address], 07/12/2024 15:16:21 zoled ronic acid 5 mg/10 0 mL in vinita ramiro 5 %-kenia er intra venou s piggy bck 2023 024 [email or web address] Not available 05/25/2024 15:34:55 Patient TargetsNo targets recorded. Patient InstructionsNo instructions recorded. Reason for Referral Infusion Therapy Center Refe rral for Osteoporosis Referring Physician: Frederick Michaud, Endocrinology, Encounter Date: 04/21/2024 Results Created Date Observation Date Name Description Value Unit Range Abnormal Flag Note LastModifiedBy Organization Detail LastModifiedTime 03/24/20 24 03/24/2024 XR, hip + pelvi s, unila teral , 2 [place] [address] [facility] [phone] Name: Rod Estevez [id number] am Date: 2023 Age: 68Phys ician: RowanDougie bajwa : 1955Ex aminat ion: XR HIP 2-3 VWS RIGHT ROUTIN E WITH PELVIS WHEN PERFOR MED EXAMIN ATION: Right hip x-ray, 2 HISTOR Y: Follow up on right hip replac ement surger y from a year ago. No pain FINDIN GS: There is a right total hip arthro plasty . The compon ents appear well seated . No fractu re identi fied. No destru ctive osseou s lesion identi fied. There are few pelvic phlebo liths. IMPRES TISH: Uncomp licate d right total hip arthro plasty . Electr onical ly signed in Donovan munir by: SANDRA VALENZUELA MD on:03/07 8:27 AM cc: Page PAGE 1 of [facility] ES 1 [email or web address] [facility] Only - [facility] Radiology [address] [place] [address], [address], 03/25/2024 10:40:32 04/21/20 24 03/11/2023 imagi ng/di agnos tic resul t No observ ation record ed. [email or web address] Not Available 04/21/2024 20:28:51 04/21/20 24 03/11/2023 imagi ng/di agnos tic resul t No observ ation record ed. [email or web address] Not Available 04/21/2024 20:28:52 07/12/20 24 07/12/2024 MAMMO , scree traci, digit al, [place] [address] Teleph one [phone] Name: ROD ESTEVEZ [id number] am Date: 2023 Age: 68Phys ician: MD ELYSE, MARISOL Del Angel : 1955Ex aminat ion: MAMM BILATE RAL DIGITA L SCREEN ING EXAM: MAMM BILATE RAL DIGITA L SCREEN ING, MAMM SCREEN ING TOMOSY NTHESI S ACCESS ION: [id number], [id number] EXAM DATE: 024 1:30 PM HISTOR Y: Screen ing. COMPAR MACEY: Prior studie s dating back to 2019. DENSIT Y: There are scatte red areas of fibrog landul ar densit y. FINDIN GS: 2D digita l compos ite views as well as 3D digita l tomosy nthesi s views were perfor med. There are no suspic ious masses , calcif icatio ns, or areas of ivon ectura l distor tion. IMPRES TISH: There is no mammog raphic eviden ce of malign reece. ASSESS MENT: BI-RAD S 1: Negati ve. RECOMM ENDATI ON: 1. Screen ing Mammog rick Bilate ral in 1 year. COMMEN TS: The patien t will be entere d into an automa glenn remind er system for a screen ing mammog rick in 1 year. The patien t has been or will be contac glenn with the result s of this exam. Electr onical ly signed in Donovan cribe by: Alex Portillo MD on:07/12/2024 1:31 PM cc: Page PAGE 1 of [facility] ES 1 [email or web address] [facility] [address] [place] [address], [address], 07/12/2024 14:48:52 11/17/19 25 11/16/2024 bone densi ty [facility] 1st [address] [address] Teleph one [phone] Name: ROD ESTEVEZ [id number] am Date: 2024 Age: 69Phys ician: YOANA BARRAGAN APRN, KEVIN : 1955Ex aminat ion: BONE DENSIT Y EXAMIN ATION: BONE DENSIT Y PATIEN T PROVID ED HISTOR Y: Postme nopaus al for screen ing. Parent hip fractu re. Curren tly on Reclas t. Previo usly on Prolia and Forteo . COMPAR MACEY: 023 FINDIN GS: AP lumbar spine T-scor e is -2.0 There has been a 3.2% decrea se in BMD. Left Hip Total Hip T-scor e is -2.1 There has been a 3.6% decrea se in BMD. Femora l neck T-scor e is -2.1 FRAX not report ed becaus e treate d for osteop orosis . IMPRES TISH: Low bone mass. Please see PACS for full comput er genera glenn report . Additi onal Clinic al Inform ation: Bone minera l densit y: Normal (T-sco re above or = -1.0) Low bone mass (T-sco re betwee n -1.0 and -2.5) Osteop orosis (T-sco re = or below -2.5) Medica l evalua tion for second surya causes of low bone minera l densit y may be approp riate. FRAX is a World Health Organi zation valida glenn fractu re risk assess ment tool that calcul ates a person 's 10 year probab ility of a major osteop orosis relate d fractu re and hip fractu re. Accord ing to the Nation al Osteop orosis Founda tion guidel marisol vázquez al women and men age 50 or older with low bone mass and a 10 year probab ility of a major osteop orosis relate d fractu re = or greate r than 20% or a 10 year probab ility of a hip fractu re = or greate r than 3% should be consid ered for treatm ent. For furthe r inform ation, includ ing treatm ent recomm endati ons, please refer to the 2019 ISCD Offici al Positi ons (http: //www. iscd.o rg) and the [facility]'s [facility] cristela's Guide to Preven tion and Treatm ent of Osteop orosis (http: //www. no.or g/prof ession als/cl inical -guide lines) Electr onical ly signed in Donovan cribe by: DOUGIE PUTNAM MD on:11/05 11:24 AM cc: Page PAGE 1 of [facility] 1 aram [facility] [address] [place] [address], [address], 11/17/2024 10:23:17 Result Notes None recorded. 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 I have enclosed a copy of the office evaluation for your records. Once again, thank you for allowing me to participate in the care of this patient. Sincerely,Electronically Signed by: ASHLEY DEMARCO MD Encounter Reason/DateNone recorded 05/25/2024 - 01:30PM - 800 1st Infusion ([place])ProblemsReviewed Problems Osteoporosis - Onset: 04/21/2024 History of right hip replacement - Onset: 03/24/2023 Allergies Allergies not reviewed (last reviewed 04/21/2024) No Known Drug Allergy (Active) OnsetDate: 06/18/2007; Medications Reviewed Medications NameDate Source [id number] daily04/21/24 entered Frederick Michaud APRN, DNP, AQUARIUM SPECIALIST multivitaminTakes once daily04/21/24 entered Radha Banks Synthroid 50 mcg uxeuhu08/23/24 filled surescripts Vitamin D3Take 2000 units once daily04/21/24 entered Radha Banks Yuvafem 10 mcg vaginal dqhwca58/15/24 filled surescripts zoledronic acid 5 mg/100 mL in mannitoL 5 %-water intravenous piggybckinfuse 5 mg IV over 30 minutes annually, start started Lori Casillas Family History Mother - Arthritis - Heart disease - Hypertensive disorder - Hypercholesterolemia - Osteoporosis - Cerebrovascular accident - Disorder of thyroid gland Father - Arthritis - Family history of malignant neoplasm - Heart disease - Hypertensive disorder - Hypercholesterolemia - Cerebrovascular accident Sister - Arthritis - Family history of malignant neoplasm - Heart disease - Hypertensive disorder - Hypercholesterolemia - Cerebrovascular accident Maternal Grandfather - Arthritis - Family history of malignant neoplasm - Hypertensive disorder Paternal Grandfather - Arthritis - Hypertensive disorder Maternal Grandmother - Arthritis - Hypertensive disorder Paternal Grandmother - Arthritis Social HistorySocial History not reviewed (last reviewed 04/21/2024) Substance UseWhat is your level of alcohol consumption?: OccasionalHow many times per week do you consume alcohol?: Less than 1 time per weekDo you use any illicit or recreational drugs?: NoWhat is your level of caffeine consumption?: OccasionalWhat was the date of your most recent tobacco screening?: 4Diet and ExerciseHow many times per week do you exercise?: 5-7 times per weekEducation and OccupationAre you currently employed?: NoWhat is your occupation?: RetiredAdvance DirectiveWhat is your code status?: DNRDo you have a medical power of applications project manager?: YesCaffeine use, Last Assessed: 31 Mar 2016 10:55AM Type: Chronic Last Edited: 31 Mar 2016 10:58AM ICD9 Code: V49.89 Last Reviewed Date: 20160331 SnomedCode: [id number] ICD10 Code: Z78.9 LastAssessedBy: SANTIAGO FUNES Currently sexually active, Last Assessed: 31 Mar 2016 10:55AM Type: Chronic Last Edited: 31 Mar 2016 10:58AM Last Reviewed Date: 20160331 SnomedCode: [id number] LastAssessedBy: SANTIAGO FUNES Exercising regularly (more than 90 min/week), Last Assessed: 31 Mar 2016 10:55AM Type: Chronic Last Edited: 31 Mar 2016 10:58AM Last Reviewed Date: 20160331 SnomedCode: [id number] LastAssessedBy: SANTIAGO FUNES History of Drug use: Denied, Type: Chronic Last Edited: 31 Mar 2016 10:58AM ICD9 Code: 305.90 Last Reviewed Date: 20160331 SnomedCode: [id number] Category: History of ICD10 Code: F19.90 History of History of second hand smoke exposure: Denied, Type: Chronic Last Edited: 20 Sep 2014 1:46PM ICD9 Code: V87.39 Last Reviewed Date: 20140920 SnomedCode: [id number] Category: History of ICD10 Code: Z77.22 History of Tobacco use: Denied, Type: Chronic Last Edited: 31 Mar 2016 10:58AM ICD9 Code: 305.1 Last Reviewed Date: 20160331 SnomedCode: [id number] Category: History of ICD10 Code: Z72.0 Never a smoker, Type: Chronic Last Edited: 13 Apr 2018 10:41AM Last Reviewed Date: 20180413 SnomedCode: 907179602 Surgical History Total hip arthroplasty - Total hip replacement Partial hysterectomy - Hysterectomy (partial) Colonoscopy with biopsy - Colonoscopy (camera from below into colon) Additional HistoryNone recordedHistory of Present IllnessNone recordedReview of SystemsNone recordedPhysical ExamNone recordedProcedure DocumentationSC 800 Infusion Record-Rheum:[facility] Infusion Record Infusion # 1 Diagnosis: M81.0 Osteoporosis Doctor: __Paula Michaud_ Patient Weight: ___ lbs Medication Dose: Reclast 5 mg Dose based on mg/kg Pre-Treatment Drug/Dose/Route: NA IV Insertion Venous Access Device Type: angiocath Gauge:24 Length: 3/4 Site of vein accessed: LAC # attempts: 1 Medication Reconstitution # of vials 1 Medication from: infusion stock Amount of drug used: _5 mg___ Mixed in: _pre mixed___ Amount of drug wasted: _0___ Infusion Start: Infusion rate Time Temperature Pulse Blood Pressure Respirations 200 ml/hr 1330 Infusion End Time:1400____ Comments: Patient tolerated infusion well. IV flushed with 10ml of normal saline. Catheter removed intact and site covered with a 2x2 gauze and coban. Patient denies any questions or concerns. Infusion Tolerated Well: Yes Total Amount of Drug Administered: _5 mg___ Next Appointment: ___1 year_ Administering RN: Lori Casillas Assessment/Plan1. TnxcfpxnfuljJ14.0: Age-related osteoporosis without current pathological fracture zoledronic acid 5 mg/100 mL in mannitol 5 %-water intravenous piggybck -infuse 5 mg IV over 30 minutes annually Quantity: (5) mg Lot #: [id number] Route: Intravenous Site: Other Residential Appraiser: DR. SMITH'S-PRE Exp Date: 11/04/2025 Administered Return to Office Juan Delvalle MD for Annual Well Woman Visit 30.EST at 900 2nd OBGYN ([place]) on 07/12/2024 at 02:00 PM Mammogram Screening 1 [place] 900 for Imaging 5.PRO at 900 Imaging ([place]) on 07/12/2024 at 01:30 PM Frederick Michaud, LEONA, DNP, AQUARIUM SPECIALIST for Established Patient 15.EST at [facility]) on 04/21/2025 at 10:00 AM to see Dougie Rowan MD for Established Patient 15.EST at [address] [place] [address] Orthopedics ([place]) on or around 03/21/2027 Frederick Michaud, LEONA, DNP, AQUARIUM SPECIALIST [address] [place] [address], [address], [facility] 05/25/2024 15:35:17 Procedures Surgical History Date Name Laterality Status Provider Name and Address Organization Details Recorded Time 07/12/20 24 Date of Last Mammogram completed [facility] 07/12/2024 09:17:58 05/25/20 24 [place] 800 Infusion Record-Rheum completed Lori Casillas [facility] 05/25/2024 14:41:29 09/18/19 23 Most Recent Bone Density completed [facility] 07/12/2024 09:18:59 01/05/20 18 Colonoscopy completed [facility] 07/12/2024 09:17:20 Colonoscopy with biopsy completed Not Available Health Note 03/17/2024 15:25:06 Total hip arthroplasty completed Not Available Health Note 03/17/2024 15:25:06 total thyroidectomy completed Juan Delvalle MD [address] [place] [address], [address], [facility] 07/12/2024 14:52:59 hysterectomy completed Juan Delvalle MD [address] [place] [address], [address], [facility] 07/12/2024 14:53:47 Imaging Results Imaging Date Name Status LastModified by Organiz ation Details LastModified Time 03/24/2024 XR, hip + pelvis, unilateral, 2 or 3 view completed [email or web address] [facility] [address] [place] [address], [address], 03/25/2024 10:40:32 03/11/2023 imaging/diagno stic result completed [email or web address] Information not available 04/21/2024 20:28:51 03/11/2023 imaging/diagno stic result completed [email or web address] Information not available 04/21/2024 20:28:52 07/12/2024 MAMMO, screening, digital, bilateral completed [email or web address] [facility] [address] [place] [address], [address], 07/12/2024 14:48:52 11/16/2024 bone density completed [email or web address] [facility] [address], [place], [address], 11/17/2024 10:23:17 Procedure Notes None recorded. Medical Equipment None Reported. Allergies No known drug allergies Medications Name Sig Start Date Stop Date Status Note LastModified by Organization Details LastModified Time celecoxib 200 mg capsule TAKE 1 CAPSULE BY MOUTH TWICE DAILY NEEDED 04/21 completed Not Available Not Available Not Available amoxicillin 500 mg capsule 07/12 completed Not Available Not Available Not Available hydrocodone 5 mg-acetamin ophen 325 mg tablet 04/21 completed Not Available Not Available Not Available ondansetron HCl 4 mg tablet 04/21 completed Not Available Not Available Not Available cefadroxil 500 mg capsule 04/21 completed Not Available Not Available Not Available Synthroid 50 mcg tablet active Not Available Not Available Not Available amoxicillin 875 mg-potassiu m clavulanate 125 mg tablet TAKE 1 TABLET BY MOUTH EVERY 12 HOURS 04/21 completed Not Available Not Available Not Available nitrofurant oin monohydrate /macrocryst als 100 mg capsule 04/21 completed Not Available Not Available Not Available calcium 600mg daily active Not Available Not Available No t Available Vitamin D3 Take 2000 units once daily active Not Available Not Available No t Available multivitami n Takes once daily active Not Available Not Available No t Available zoledronic acid 5 mg/100 mL in mannitol 5 %-water intravenous piggybck infuse 5 mg IV over 30 minutes annually 2023 active Not Available Not Available Not Avai lable estradiol 10 mcg vaginal tablet INSERT 1 TABLET IN THE VAGINA THREE TIMES A WEEK active Not Available Not Available No t Available Vitals Date Recorded Body height Heart rate Oxygen saturation Oxygen saturation in Arterial blood by Pulse oximetry Provider Name and Address Organization Details Last Updated DateTime 03/24/2024 170.18 cm 77 /min 97 % 97 % Francine Del Castillo [facility] 03/24/2024 09:36:11 Date Recorded Body height Body mass index (BMI) Body weight Heart rate Systolic blood pressure Diastolic blood pressure Provider Name and Address Organization Details Last Updated DateTime 4 170.18 cm 24.4 kg/m2 95790.6 9 g 64 /min 138 mm[Hg] 80 mm[Hg] Radha EscaleraFaith berta [facility] 4 10:58:16 Date Recorded Body height Body mass index (BMI) Body weight Systolic blood pressure Diastolic blood pressure Provider Name and Address Organization Details Last Updated DateTime 07/12/2024 167.64 cm 24.5 kg/m2 65233.04 g 130 mm[Hg] 72 mm[Hg] Myrna Hanson [facility] 4 14:47:06 Social History Question Answer Notes LastModified by Organizat ion Details LastModified Time Tobacco Smoking Status Never Smoker Myrna [facility] 07/12/2024 14:43:45 Do You Have An Advance Directive? Yes [email or web address] Information not available 03/17/2024 What Is Your Level Of Alcohol Consumption? Occasional [email or web address] Information not available 03/17/2024 How Many Times Per Week Do You Consume Alcohol? Less Than 1 Time Per Week [email or web address] Information not available 03/17/2024 What Is Your Level Of Caffeine Consumption? Occasional [email or web address] Information not available 03/17/2024 What Is Your Code Status? DNR [email or web address] Information not available 03/17/2024 Are You Currently Employed? No [email or web address] Information not available 03/17/2024 What Is Your Occupation? Retired [email or web address] Information not available 03/17/2024 How Many Times Per Week Do You Exercise? 5-7 Times Per Week [email or web address] Information not available 03/17/2024 Do You Have A Medical Power Of Tool Repairer Bench? Yes [email or web address] Information not available 03/17/2024 What Was The Date Of Your Most Recent Tobacco Screening? 03/24/2024 [email or web address] Information not available 03/17/2024 How Many Children Do You Have? 1 [email or web address] Information not available 07/12/2024 What Is Your Relationship Status? [email or web address] Information not available 03/17/2024 Do You Use Any Illicit Or Recreational Drugs? No [email or web address] Information not available 03/17/2024 Sex: Unknown Functional Status Question Answer Note LastModified by Organizat ion Details LastModified Time What is your exercise level? Occasional [email or web address] Information not available 03/17/2024 Mental Status None recorded. Family History Relationship Description Onset Age of this Age Resolved Age Notes LastModified by Organization Details LastModified Time Mother Arthritis [email or web address] Not available 03/17/2024 15:25:05 Mother Heart disease [email or web address] Not available 2023 15:25:05 Mother Hypertensive disorder [email or web address] Not available 2023 15:25:05 Mother Hypercholest erolemia [email or web address] Not available 2023 15:25:05 Mother Osteoporosis [email or web address] Not availa ble 03/17/2024 15:25:05 Mother Cerebrovascu lar accident [email or web address] Not available 07/2024 15:25:05 Mother Disorder of thyroid gland [email or web address] Not available 2023 15:25:05 Father Arthritis [email or web address] Not available 03/17/2024 15:25:05 Father Family history of malignant neoplasm [email or web address] Not available 2023 15:25:05 Father Heart disease [email or web address] Not available 2023 15:25:05 Father Hypertensive disorder [email or web address] Not available 2023 15:25:05 Father Hypercholest erolemia [email or web address] Not available 2023 15:25:05 Father Cerebrovascu lar accident [email or web address] Not available 07/2024 15:25:05 Sister Arthritis [email or web address] Not available 03/17/2024 15:25:05 Sister Family history of malignant neoplasm [email or web address] Not available 2023 15:25:05 Sister Heart disease [email or web address] Not available 2023 15:25:05 Sister Hypertensive disorder [email or web address] Not available 2023 15:25:05 Sister Hypercholest erolemia [email or web address] Not available 2023 15:25:05 Sister Cerebrovascu lar accident [email or web address] Not available 07/2024 15:25:05 Maternal Grandfather Arthritis [email or web address] Not available 03/07 15:25:05 Maternal Grandfather Family history of malignant neoplasm [email or web address] Not available 2023 15:25:05 Maternal Grandfather Hypertensive disorder [email or web address] Not available 2023 15:25:05 Paternal Grandfather Arthritis [email or web address] Not available 03/07 15:25:05 Paternal Grandfather Hypertensive disorder [email or web address] Not available 2023 15:25:05 Maternal Grandmother Arthritis [email or web address] Not available 03/07 15:25:05 Maternal Grandmother Hypertensive disorder [email or web address] Not available 2023 15:25:05 Paternal Grandmother Arthritis [email or web address] Not available 03/07 15:25:05 Medical History Condition Response High Blood Pressure N COPD N Depression N Anxiety Disorder N Arthritis Y Cancer N Stroke N Fibromyalgia N Kidney Disease N Attention-deficit Hyperactivity Disorder N Thyroid Problems Y Anemia N Diabetes N Bleeding Disorder N Hyperlipidemia N Asthma N Seizures N Heart Disease N Osteoporosis Y Gynecological History Statement/Question Response If Post Menopausal, Age at Menopause 46 Date of Last Mammogram 07/12/2024 Most Recent Bone Density 09/18/2022 Menses Monthly N HPV Vaccine N Age at Menarche 14 Current Control Method Hysterectom y Colonoscopy 01/04/2018 Hormone Replacement Therapy N Obstetrics History GPAL:G 1 P 1 0 0 1 Type Value Full Term 1 Living 1 Total 1 Immunizations Vaccine Type Date Status Note Provider Nam e and Address Organization Details Recorded Time zoster recombinant 9 completed Radha Monterroso en null, [facility] 04/21/2024 10:54:32 zoster recombinant 9 completed Radha Monterroso en null, [facility] 04/21/2024 10:54:32 Influenza, high-dose, quadrivalent, PF 3 completed Radha Escalera-Lucass en null, [facility] 04/21/2024 10:54:32 Influenza, high-dose, quadrivalent, PF 2 completed [facility] 10:54:32 Influenza, high-dose, quadrivalent, PF 1 completed [facility]20[facility] 10:54:32 COVID-19, mRNA, LNP-S, PF, 30 mcg/0.3 mL dose 1 completed [facility]2024 10:54:32 COVID-19, mRNA, LNP-S, PF, 30 mcg/0.3 mL dose [facility] 10:54:32 COVID-19, mRNA, LNP-S, PF, 30 mcg/0.3 mL dose [facility] 10:54:32 Pneumococcal conjugate PCV20, polysaccharide [id number] conjugate, adjuvant, PF 3 [facility]2024 10:54:32 COVID-19, mRNA, LNP-S, bivalent, PF, 30 mcg/0.3 mL dose 2 [facility]/21[facility]2024 10:54:32 RSV, recombinant, protein subunit RSVpreF, adjuvant reconstituted, 0.5 mL, PF 3 [facility]/21/2024 10:54:32 COVID-19, mRNA, LNP-S, PF, lincoln-sucrose, 30 mcg/0.3 mL 3 completed [facility]/21/2024 10:54:32 Influenza, split virus, trivalent, preservative 4 completed Radha Hankinson-Lucass en null, [facility] 04/21/2024 10:54:32 Influenza, split virus, trivalent, PF 5 completed Radha Hankinson-Lucass en null, [facility] 04/21/2024 10:54:32 Influenza, split virus, quadrivalent, PF 9 completed Radha Hankinson-Lucass en null, [facility] 04/21/2024 10:54:32 Past Encounters Encounter ID Performer Location Encounter Start Date Encounter Closed Date Diagnosis/Indication Diagnosis SNOMED-CT Code Diagnosis ICD10 Code Diagnosis Note [id number] Dougie Rowan MD [facility] ([place]) [address] [place] [address],[address] [place] [id number] 3 03/24/2024 09:00:53 03/24/2024 10:30:22 History of total replacement of right hip joint [id number] 41191 Z96.697 [id number] Frederick Muhammad er, NEW ORDER CLERK, DNP, AQUARIUM SPECIALIST [facility] ([place]) [address] [place] [address] 04/21/2024 10:43:59 04/21/2024 11:26:47 Osteoporosis 13388901 M81.0 [id number] Ashley Demarco MD [facility] ([place]) [address] [place] [address],[address] [place] [phone] 05/25/2024 13:59:19 05/25/2024 17:41:42 Osteoporosis 82214469 M81.0 [id number] Juan Delvalle MD [facility] ([place]) [address] [place] [address] 2 [place] [address] 07/12/2024 14:27:08 07/12/2024 15:09:30 Screening mammography of bilateral breasts [id number] 15743 Z12.31 Mammogram was normal today. Mammogram was ordered for next year. Routine gy necologic examination [id number] Z01.419 Normal exam today. Postmenopa usal osteoporosis 426822125 M81.0 She will continue her calcium 1200 mg/day. She will continue Reclast per endocrinol oglorie. She is scheduled for a follow-up DEXA bone scan in September 2024. 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 This is working well. Health Concerns Section Related Observation LastModified by Organization Detai ls LastModified Time None Recorded Concern Status LastModified by Organization Details LastModified Time None Recorded Advance Directives Directive Y: Payers Encounter Date Sequence Insurance Name Policy Number Policy Lockhart Covered Member ID Lockhart Member ID Guarantor Name 03/24/2024 1 [place] Rod Sams [id number] Rod Sams 03/24/2024 2 [employer] (MEDICARE SUPPLEMENT) Rod Sams [id number] Rod Sams 04/21/2024 1 [place] Rod Sams [id number] Rod Sams 04/21/2024 2 [employer] (MEDICARE SUPPLEMENT) Rod Sams [id number] Rod Sams 05/25/2024 1 [place] Rod Sams [id number] Rod Sams 05/25/2024 2 [employer] [place] (MEDICARE SUPPLE[place]) Rod Sams [id number] Rod Sams 07/12/2024 1 [place] Rod Sams [id number] 5 Rod Sams 07/12/2024 2 [employer] (MEDICARE SUPPLEMENT) Rod Sams [id number] Rod Sams Notes Date Note Type Note Provider Name and Address Organization Details Recorded Time 03/24/2024 text/html Patient was seen in the office today for HOOS, F/U 1YR RTHA 03/24/23. Patient states their pain level is at 0/10 . Dougie Rowan MD [address] [place] [address], [phone], [facility] 03/25/2024 07:29:05 04/21/2024 text/html Ms. Sams is a 68-year-old female who presents for follow-up of osteoporosis. She is currently being treated with Prolia. Prolia was started in August 2018 after she completed Forteo. Her last Prolia injection was 10/22/2023. Patient's most recent bone density scan was completed in September 2022. T-scores: AP spine -1.8, femoral neck -2.4, total hip -1.9, distal radius -2.0. Patient does not have any history of fragility fracture. Total right hip replacement in March 2023. No history of parathyroid disease Partial thyroidectomy in 1985. Levothyroxine. No history of celiac disease No history of seizure disorder No cancer history No history of radiation therapy No aromatase inhibitor use No history of early menopause No weight changes No chronic diarrhea No history of kidney stones No balance problems No history of irregular heart rhythm No gastroesophageal reflux disease No use of PPIs No history of RA No history of steroid use Family History: Mother had osteoporosis, Sister osteoporosis and MGUS Social history: Denies smoking history. Current estimated calcium intake from diet is 600mg per day. Calcium supplement 600mg per day. Multivitamin. Vitamin D 2000IU daily No falls in the past year. Reports regular dental examinations. The patient does not report any dental issues and does not have any dental procedures planned. Frederick Michaud, NEW ORDER CLERK, DNP, AQUARIUM SPECIALIST [address] [place] [address], [phone], [facility] 04/21/2024 13:33:01 07/12/2024 text/html Rod comes in today for her yearly check. She is a 68-year-old white female 1 para 1 who is currently menopausal. She had a previous hysterectomy in the past. She is . She is retired. She has 1 son who is a child psychologist and teacher. He lives out in [place]. She is currently seeing endocrinology for osteoporosis. She had been on Forteo for 2 years originally and then switched over to Prolia from 2017 through 2022. In May 2024 she was started on Reclast. Her DEXA bone scan in September 2022 showed T-score of the spine at -1.8 and a T-score of the femoral neck at -2.4. She does take a total of 1200 mg/day of calcium. This includes dietary calcium. She had a colonoscopy in December 2017 which was normal. She is on a 10-year schedule.Her mammogram today was normal. She is currently taking Yuvafem 3 times a week for vaginal dryness. This is working well. She has no hot flashes or night sweats. Juan Delvalle MD [address] [facility], [place], [phone], [facility] 07/12/2024 15:16:18 OBGyn Episode No OBEpisode recorded.
--- OUTSIDE RECORDS SUMMARY | 2024-12-30 12:50 | XMS_ITS | Referral Summary ---
Author Organization [facility] Address [address] [place] [address] Care Team Providers Care Java J2Ee Lead Name Role Phone Guerrero Whatley MD Primary Care Provider [phone] Encounters Date Type Department Care Team Description 12/29/2024 11:30 AM CDT Office Visit [facility] - [address] [place] [address] Joyce Bo, Impacted cerumen of right ear (Primary Dx); Otalgia, left ear from Last 3 Months Allergies No known active allergies Medications levothyroxine (SYNTHROID) 50 mcg tabletIndication s:hypothyroidism Take 1 tablet (50 mcg total) by mouth supervisor lathing before breakfast 6 Active YUVAFEM 10 mcg tablet Insert 1 tablet (10 mcg total) into the vagina 2 (two) times a week Take Thursday and 3 9 Active multivitamin tabletIndication s:Vitamin Deficiency Prevention Take 1 tablet by mouth every morning Active calcium carbonate-vitami n D3 1,250mg (500mg elemental) - 5 mcg (200 units) per tabletIndication s:Vitamin D Deficiency Take 1 tablet by mouth every morning Active flaxseed oil 1,000 mg capsuleIndicatio ns:supplement Take 1 capsule by mouth every morning 12/30/19 25 Discontin ued(Thera py completed ) denosumab (PROLIA) 60 mg/mL syringeIndicatio ns:Post-Menopaus al Osteoporosis Inject 1 mL (60 mg total) under the skin every 6 (six) months 12/30/19 25 Discontin ued(Alter bishnu therapy) vitamin B complex vit C no.3 (VITAMIN B COMP AND C NO.3 ORAL) 0 12/30/19 25 Discontin ued(Thera py completed ) Active Problems Problem Noted Date Diagnosed Date Allergic rhinitis 07/23/2020 Assessment & Plan (07/23/2020 8:58 AM APPLICATION SECURITY SPECIALIST): Flonase 2 sprays into each nostril while looking down over the sink, do not sniff in or blow nose after use for at least 30 minutes daily for at least three weeks Consider softer diet if jaw begins to throb with crunching foods Basal cell carcinoma (BCC) of right lower eyelid 07/12/2019 Overview (07/12/2019): Added automatically from request for surgery [id number] Hearing loss of right ear 07/12/2019 Assessment & Plan (07/12/2019 3:56 PM APPLICATION SECURITY SPECIALIST): Resolved, follow up if symptoms return Impacted cerumen of right ear 07/12/2019 Assessment & Plan (12/29/2024 12:00 PM CDT): Avoid ear cleaning techniques Follow up as needed Use vinegar and water as needed Call if hearing test requested Assessment & Plan (07/23/2020 9:03 PM APPLICATION SECURITY SPECIALIST): Avoid ear cleaning techniques Avoid water to ears Assessment & Plan (07/12/2019 3:56 PM APPLICATION SECURITY SPECIALIST): Avoid ear cleaning techniques Avoid water to ears Vinegar and water recipe provided Skin neoplasm 01/08/2017 Psoriasis vulgaris 01/08/2017 Lentigo 05/28/2016 Benign neoplasm of soft tissues 06/04/2015 Social History Tobacco Use Types Packs/Day Years Used Date Smoking Tobacco: Never Smokeless Tobacco: Never Alcohol Use Standard Drinks/Week Comments Not Currently 0 (1 standard drink = 0.6 oz pur e alcohol) Comments No Sex and Gender Information Value Date Recorded Sex Assigned at Not on file Legal Sex Female 10:57 AM APPLICATION SECURITY SPECIALIST Gender Identity Female 01/31/2020 10:16 AM CDT Sexual Orientation Straight 01/31/2020 10 :16 AM CDT Last Filed Vital Signs Vital Sign Reading Time Taken Comments Blood Pressure 140/87 12/29/2024 11:30 AM CDT Pulse 66 12/29/2024 11:30 AM CDT Temperature 36.7 C (98.1 F) 07/24/2020 5:23 PM APPLICATION SECURITY SPECIALIST Respiratory Rate 18 12/29/2024 11:30 AM CDT Oxygen Saturation 97% 12/29/2024 11:30 AM CDT Inhaled Oxygen Concentration - - Weight 71.2 kg (157 lb) 12/29/2024 11:30 AM CDT Height 170.2 cm (5' 7.01 ) 12/29/2024 11:30 AM C DT Body Mass Index 24.58 12/29/2024 11:30 AM CDT Plan of Treatment Not on file Procedures Procedure Name Priority Date/Time Associated Diagnosis Comments CT REMOVAL IMPACTED CERUMEN INSTRUMENTATION UNILAT Routine 12/29/2024 11:30 AM CDT Impacted cerumen of right ear from Last 3 Months Results * CT REMOVAL IMPACTED CERUMEN INSTRUMENTATION UNILAT (12/29/2024 11:30 AM CDT) Narrative Joyce Bo DO - 12/29/2024 11:30 AM CDT Joyce Bo DO 12/29/2024 12:03 PM Ear Cerumen Removal Performed by: Joyce Bo DO Authorized by: Joyce Bo DO Consent Given by: Patient Timeout: prior to procedure the correct patient, procedure, and site was verified Verbal consent obtained: Yes Written consent obtained: No Risks, alternatives, and patient questions discussed: Yes Preparation: Patient was prepped using a clean technique Location: R ear R ear cerumen impacted?: Yes R ear method of removal: Instrumentation and magnification R ear instrumentation: Curette R ear magnification: Operating microscope Inspection: TM intact Hearing quality: Improved Patient tolerance: Patient tolerated the procedure well with no immediate complications Joyce Bo DO IN CLINIC/BEDSIDE ORDERABLES Final Result from Last 3 Months Insurance MEDICARE [employer] Care Teams Java J2Ee Lead Relationship Specialty Start Date End Date Guerrero Whatley MD PCP - General Internal Medicine 02/22/19
--- OUTSIDE RECORDS SUMMARY | 2024-12-30 12:50 | XMS_ITS | Encounter Summary ---
Author Organization [facility] Healthcare Address [address] [place] [address] Care Team Providers Care Rotating Equipment Specialist Name Role Phone Guerrero Whatley MD Primary Care Provider [phone] Reason for Referral * Procedure (Routine) - Authorized Specialty Diagnoses / Procedures Referred By Jesse berger Referred To Contact Diagnoses Impacted cerumen of right ear Procedures Ear Cerumen Removal Joyce Bo DO [address] [facility] [address] VINOD Goodman [address] [address] Phone: tel: fax: [facility] Medical Group Referral ID Status Reason Start Date Expiration Date V isits Requested Visits Authorized [id number] Authorized 12/29/2024 01/28/2026 1 1 Reason for Visit * Reason Comments Ear Problem Ear fullness & heari ng loss; Pt states R ear is worse, has not had a hearing test in the last year. * Consultation (Routine) - Authorized Specialty Diagnoses / Procedures Referred By Jesse berger Referred To Contact Otolaryngology Diagnoses Otalgia, left ear Guerrero Whatley MD [address] [place] [address] Phone: tel: fax: Joyce Bo DO [address] [facility] [address] VINOD Goodman [address] [address] Phone: tel: fax: Referral ID Status Reason Start Date Expiration Date Visits Requested Visits Authorized [id number] Authorized Specialty Services Required 11/09/2024 12/09/2025 5 5 Encounter Details Date Type Department Care Team (Late st Contact Info) Description 12/29/2024 11:30 AM CDT Office Visit [facility] - [facility] [address] [facility] [address] [place] [address] Joyce Bo DO [address] [facility] [address] [place] [address] Impacted cerumen of right ear (Primary Dx); Otalgia, left ear Social History Tobacco Use Types Packs/Day Years Used Date Smoking Tobacco: Never Smokeless Tobacco: Never Alcohol Use Standard Drinks/Week Comments Not Currently 0 (1 standard drink = 0.6 oz pur e alcohol) Comments No Sex and Gender Information Value Date Recorded Sex Assigned at Not on file Legal Sex Female 10:57 AM SENIOR PASTOR Gender Identity Female 01/31/2020 10:16 AM CDT Sexual Orientation Straight 01/31/2020 10 :16 AM CDT documented as of this encounter Last Filed Vital Signs Vital Sign Reading Time Taken Comments Blood Pressure 140/87 12/29/2024 11:30 AM CDT Pulse 66 12/29/2024 11:30 AM CDT Temperature - - Respiratory Rate 18 12/29/2024 11:30 AM CDT Oxygen Saturation 97% 12/29/2024 11:30 AM CDT Inhaled Oxygen Concentration - - Weight 71.2 kg (157 lb) 12/29/2024 11:30 AM CDT Height 170.2 cm (5' 7.01 ) 12/29/2024 11:30 AM C DT Body Mass Index 24.58 12/29/2024 11:30 AM CDT documented in this encounter Patient Instructions * Patient Instructions* Joyce Bo DO - 12/29/2024 11:30 AM CDT Avoid ear cleaning techniques Follow up as needed Use vinegar and water as needed Call if hearing test requested documented in this encounter Progress Notes * Joyce Bo DO - 12/29/2024 11:30 AM CDTAssociated Order(s): Ear Cerumen Removal Post-Procedure Diagnose(s): Impacted cerumen of right ear Images from the original note were not included. ENT Consult Assessment & Plan: Diagnoses and all orders for this visit: Impacted cerumen of right ear (Primary) Assessment & Plan: Avoid ear cleaning techniques Follow up as needed Use vinegar and water as needed Call if hearing test requested Orders: - Ear Cerumen Removal Otalgia, left ear - Ambulatory referral to ENT Reason for Consult: Chief Complaint Patient presents with Ear Problem Ear fullness & hearing loss; Pt states R ear is worse, has not had a hearing test in the last year. Requesting Provider: Guerrero Whatley MD SUBJECTIVE: HPI: Patient Isabela is a 69 y.o. female with chief complaint of Chief Complaint Patient presents with Ear Problem Ear fullness & hearing loss; Pt states R ear is worse, has not had a hearing test in the last year. . reported location of complaint was both ears. This compliant quality was reported as constant andhas a severity of moderate. The duration of this complaint was the last few months. Onset of this problems was few months and was associated with right worse than left, denied ear surgery. FH: Negative for hearing loss Last seen: 2020: Allergic rhinitis, unspecified seasonality, unspecified trigger (Primary) Assessment & Plan: Flonase 2 sprays into each nostril while looking down over the sink, do not sniff in or blow nose after use for at least 30 minutes daily for at least three weeks Consider softer diet if jaw begins to throb with crunching foods Impacted cerumen of right ear Assessment & Plan: Avoid ear cleaning techniques Avoid water to ears Orders: - Ear Cerumen Removal OBJECTIVE: Review of Systems HENT: Positive for hearing loss. Physical Exam Constitutional: She is alert and has a normal appearance. She appears well- developed. She appears not distressed. She is cooperative. HENT: Head: Normocephalic and atraumatic. Right Ear: Hearing and external ear normal. Ear canal has impacted cerumen. Left Ear: Hearing, tympanic membrane, external ear and ear canal normal. Nose: Nose normal. No mucosal edema, rhinorrhea or nasal deformity. Mouth/Throat: Uvula is midline. Mucous membranes are moist. No oral lesions. Eyes: Pupils are equal, round, and reactive to light. Conjunctivae and lids are normal. Neck: Trachea normal. Cardiovascular: Comments: No edema, no JVD, normal distal perfusion Pulmonary/Chest: Effort normal. No respiratory distress. Musculoskeletal: General: Normal range of motion. Left shoulder: Normal. Cervical back: Full passive range of motion without pain, normal range of motion and neck supple. Lymphadenopathy: She has no cervical adenopathy. Neurological: She is alert and oriented to person, place, and time. No cranial nerve deficit. Coordination and gait normal. Skin: Skin is warm and dry. No rash noted. Nails show no clubbing. Psychiatric: Her speech is normal, behavior is normal and behavior is cooperative. Mood, affect, judgment and thought content normal. Vitals reviewed. Examination of the pharynx with use of the laryngeal mirror was not able to be performed due to patient discomfort Neck: no palpable abnormality of submandibular or parotid gland Facial Nerve strength intact and symmetric Ear Cerumen Removal Performed by: Joyce Bo [...] with no immediate complications Joyce Bo DO documented in this encounter Miscellaneous Notes * Assessment & Plan Note - Joyce Bo DO - 12/29/2024 12:00 PM CDT Associated Problem(s): Impacted cerumen of right ear Avoid ear cleaning techniques Follow up as needed Use vinegar and water as needed Call if hearing test requested documented in this encounter Plan of Treatment Not on file documented as of this encounter Procedures Procedure Name Priority Date/Time Associated Diagnosis Comments NM REMOVAL IMPACTED CERUMEN INSTRUMENTATION UNILAT Routine 12/29/2024 11:30 AM CDT Impacted cerumen of right ear documented in this encounter Results * NM REMOVAL IMPACTED CERUMEN INSTRUMENTATION UNILAT (12/29/2024 11:30 [...] Bo DO IN CLINIC/BEDSIDE ORDERABLES Final Result documented in this encounter Visit Diagnoses Diagnosis Impacted cerumen of right ear- Primary Impacted cerumen Otalgia, left ear documented in this encounter Discontinued Medications Medication Sig Discontinue Reason Start Date End Da te denosumab (PROLIA) 60 mg/mL syringeIndications:Post-M enopausal Osteoporosis Inject 1 mL (60 mg total) under the skin every 6 (six) months Alternate therapy 12/29/2024 flaxseed oil 1,000 mg capsuleIndications:supple ment Take 1 capsule by mouth every morning Therapy completed 12/29/2024 vitamin B complex vit C no.3 (VITAMIN B COMP AND C NO.3 ORAL) Therapy completed 05/11/2020 12/29/2024 documented as of this encounter Orders Outpatient Referral Count Last Ordered Date Fir st Ordered Date AMB REFERRAL TO ENT 1 12/29/2024 documented in this encounter Care Teams Rotating Equipment Specialist Relationship Specialty Start Date End Date Guerrero Whatley MD PCP - General Internal Medicine 02/22/19 documented as of this encounter
--- OUTSIDE RECORDS SUMMARY | 2024-12-30 12:52 | XMS_ITS | Clinical Summary ---
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 6 Active YUVAFEM 10 mcg [...] 07/23/2020 Assessment & Plan (07/23/2020 8:58 AM [employer]): Flonase 2 sprays into each nostril while looking down over the sink, do not sniff in or blow nose after use for at least 30 minutes daily for at least three weeks Consider softer diet if jaw begins to throb with crunching foods Basal cell carcinoma (BCC) of right lower eyelid 07/12/2019 Overview (07/12/2019): Added automatically from request for surgery [id number] Hearing loss of right ear 07/12/2019 Assessment & Plan (07/12/2019 3:56 PM [employer]): Resolved, follow up if symptoms return Impacted cerumen of right ear 07/12/2019 Assessment & Plan (12/29/2024 12:00 PM CDT): Avoid ear cleaning techniques Follow up as needed Use vinegar and water as needed Call if hearing test requested Assessment & Plan (07/23/2020 9:03 PM [employer]): Avoid ear cleaning techniques Avoid water to ears Assessment & Plan (07/12/2019 3:56 PM [employer]): Avoid ear cleaning techniques Avoid water to ears Vinegar and water recipe provided Skin neoplasm 01/08/2017 Psoriasis vulgaris 01/08/2017 Lentigo 05/28/2016 Benign neoplasm of soft tissues 06/04/2015 Encounters Date Type Department Care Team Description 12/29/2024 11:30 AM CDT Office Visit [facility] - [address] [place] [address] Joyce Bo, DO Impacted cerumen of right ear (Primary Dx); Otalgia, left ear from Last 3 Months Surgical History Surgery Date Site/Laterality Comments THYROIDECTOMY, PARTIAL 09/07/1985 - 09/06/1986 HYSTERECTOMY 09/07/1998 - 09/06/1999 EYE SURGERY 07/25/2019 Right Right lower eyelid reconstruction with lateral canthal advancement flap Medical History Medical History Date Comments Thyroid disease Osteoporosis Family History Medical History Relation Name Comments Arrhythmia Father Family history of cardiac pacemaker - (Added by TW Conv) Atrial fibrillation Father Family h istory of atrial fibrillation - (Added by TW Conv) Cancer Father Family history of malignant neoplasm - (Added by TW Conv) Melanoma Father Family history of melanoma - (Added by TW Conv) Hypertension Mother Family history of hypertension - (Added by TW Conv) Melanoma Sister 1 Family history of melanoma - (Added by TW Conv) Arrhythmia Sister 2 Family history of cardiac pacemaker - (Added by TW Conv) Relation Name Status Comments Father Mother Sister 1 Sister 2 Social History Tobacco Use Types Packs/Day Years Used Date Smoking Tobacco: Never Smokeless Tobacco: Never Alcohol Use Standard Drinks/Week Comments Not Currently 0 (1 standard drink = 0.6 oz pur e alcohol) Comments No Sex and Gender Information Value Date Recorded Sex Assigned at Not on file Legal Sex Female 10:57 AM [employer] Gender Identity Female 01/31/2020 10:16 AM CDT Sexual Orientation Straight 01/31/2020 10 :16 AM CDT Obstetrics History Last Filed Vital Signs Vital Sign Reading Time Taken Comments Blood Pressure 140/87 12/29/2024 11:30 AM CDT Pulse 66 12/29/2024 11:30 AM CDT Temperature 36.7 C (98.1 F) 07/24/2020 5:23 PM [employer] Respiratory Rate 18 12/29/2024 11:30 AM CDT Oxygen Saturation 97% 12/29/2024 11:30 AM CDT Inhaled Oxygen Concentration - - Weight 71.2 kg (157 lb) 12/29/2024 11:30 AM CDT Height 170.2 cm (5' 7.01 ) 12/29/2024 11:30 AM C DT Body Mass Index 24.58 12/29/2024 11:30 AM CDT Plan of Treatment Health Maintenance Due Date Last Done Comments Breast Cancer Screening-Mammogram 1956 Colon Cancer Screening-Colonoscopy 1955 Depression Screening 1956 Fall Risk Assessment 1955 Hepatitis C Screening 1956 Osteoporosis Screening-Bone Density Scan 1956 DTaP/Tdap/Td Vaccine (1 - Tdap) 1967 Hepatitis B Screening 1974 Pneumococcal vaccine 65+ (1 of 1 - PCV) 2006 Well Visit 65+ 2021 Influenza Vaccine (Season Ended) 2025 07/02/2019, 06/11/2015, 06/22/2014 Zoster Vaccine Completed 07/02/2019, 05/01/2019 Procedures Procedure Name Priority Date/Time Associated Diagnosis Comments SC REMOVAL IMPACTED CERUMEN INSTRUMENTATION UNILAT Routine 12/29/2024 11:30 AM CDT Impacted cerumen of right ear from Last 3 Months Results * SC REMOVAL IMPACTED CERUMEN INSTRUMENTATION UNILAT (12/29/2024 11:30 [...] Result from Last 3 Months Insurance MEDICARE [facility] MEDICARE [facility] Member Subscriber Plan / Payer (Ef fective 2021-) Name:Isabela Sams Relation to Subscriber:Self Name:Isabela Sams Payer ID:[id number] Group ID:Not on file Type:COMMERCIAL Address: [facility] [address] [place], [place] Care Teams S[employer] Relationship Specialty Start Date End Date Guerrero Whatley MD PCP - General Internal Medicine 02/22/19
== END 2024-12-30 12:46 | disposition home or self-care (01) ==
PROVIDERS: PCP Internal Medicine; Visit Provider Internal Medicine Critical Care Medicine
DX: J98.4 Other disorders of lung (principal)
CPT/HCPCS: 71250; 94060; 94726; 94729